=== PATIENT | male | born 1995 | race Caucasian/White ===

== ENCOUNTER → 2016-10-31 | Outpatient (CLI) | payer MEDICAID | END | disposition home or self-care (01) | LOC: M OUTALCOH 09:19 | PROVIDERS: ATTEND Psychiatry & Neurology Psychiatry | DX: Z13.9 Encounter for screening, unspecified (principal); F12.20 Cannabis dependence, uncomplicated ==

== ENCOUNTER 2016-11-08 14:45 | Outpatient (RCR) | payer MEDICAID | END 2016-11-27 | disposition home or self-care (01) | LOC: M OUTALCOH 14:45 | PROVIDERS: ATTEND Psychiatry & Neurology Psychiatry | DX: F12.20 Cannabis dependence, uncomplicated (principal); F17.200 Nicotine dependence, unspecified, uncomplicated ==

== ENCOUNTER 2016-11-13 10:49 | Emergency (ER) | payer MEDICAID, OTHER ==
--- NOTE | 2016-11-13 12:25 | EDDOCDS ---
Nurse's Notes [facility] Name: Juan Clark Age: 21 yrs Sex: Male : 1995 Arrival Date: 11/13/2016 Time: 10:49 Bed TR7 Private MD: [facility] - Ad[facility] Diagnosis: Dental caries;Insect bite (nonvenomous) of forearm-right Presentation: 11/13 11:00 Presenting complaint: Patient states: Generalized dental pain, for one week, was at [facility] dentist today, prescribed antibiotics, has not started yet. Adult Sepsis Screening: The patient does not have new or worsening altered mentation. Patient's respiratory rate is less than 22. Systolic blood pressure is greater than 100. Patient has a qSOFA score of 0- Negative Sepsis Screen. Suicide/Homicide risk assessment- the patient denies having any suicidal and/or homicidal ideations and does not present with any other emotional, behavioral or mental health complaints. Status: Patient is not a ramp service employee or dependent. Transition of care: patient was not received from another setting of care. 11:00 Acuity: THERESA Level 5 dwg 11:00 Method Of Arrival: Walkin/Carried/Asstd dw Triage Assessment: 11:03 General: Appears in no apparent distress, uncomfortable. Pain: Pain currently is 8 out dwg of 10 on a pain scale. HIV screening NA for this visit Offered previously. Historical: - Allergies: SULFA (SULFONAMIDES); - Home Meds: 1. trazodone 50 mg Oral tab (Last dose: 11/13/2016) 2. Tylenol 325 mg Oral tab 2 tabs as needed (Last dose: 11/13/2016 08:00) 3. Motrin 800 mg Oral tab 1 tab as needed (Last dose: 11/13/2016 08:00) - PMHx: Anxiety Disorder; Depression; - PSHx: Ear tubes; Tonsillectomy; - Social history: Smoking status: Patient uses tobacco products, current every day smoker. No barriers to communication noted, The patient speaks fluent Portuguese. - Family history: No immediate family members are acutely ill. - : The pt / caregiver states he / she is not on anticoagulants. Home medication list is obtained from the patient. - Exposure Risk Screening:: None identified. Screenin:43 Screening information is obtained from the patient. Fall risk: No risks identified. mb9 Assistance ADL's: requires no assistance with activities of daily living. Abuse/DV Screen: The patient / caregiver reports he/she is: not in a situation that causes fear, pain or injury. Nutritional screening: No deficits noted. Advance Directives: There is no active DNR order. home support is adequate. Assessment: 11:43 General: Appears in no apparent distress, Behavior is appropriate for age, cooperative. mb9 Pain: Location: mouth Pain currently is 6 out of 10 on a pain scale. Respiratory: Airway is patent Respiratory effort is even, unlabored. Injury Description: The patient reports to have been bitten by a spider on his/her right wrist. The bite was sustained 2 days ago. pt's fiance states, "He was bitten by a spider and needs that looked at". pt reports a spider bite to his right distal upper extremity. pt reports he was seen by his PHCP for the bite and was told to ice the area. pt has no additional concerns at this time. 12:06 General: pt now states he is concerned about the spider bite and would like to see the mb9 provider again. Mirza Dunne aware and in to see pt. . Vital Signs: 10:51 BP 138 / 81; Pulse 100; Resp 16; Temp 97.7(O); Pulse Ox 99% ; Weight 77.11 kg; Height 6 cmb ft. 0 in. (182.88 cm); Pain 7/10; 10:51 Body Mass Index 23.06 (77.11 kg, 182.88 cm) cmb Vitals: 10:51 Log In Time: November 13, 2016 at 10:49. cmb ED Course: 10:50 Patient visited by Rin López. cmb 10:50 Patient moved to Waiting cmb 10:51 [facility] is Private Physician. cmb 10:52 Patient moved to Pre RCE cmb 11:01 Triage Initiated dwg 11:22 Patient moved to Triage 2 mb9 11:25 Mirza Dunne PA-C is PHCP. ar2 11:25 Carlos Tran MD is Attending Physician. ar2 11:31 Patient visited by Mirza Dunne PA-C. ar2 11:36 [facility] is Referral Physician. ar2 11:43 The patient / caregiver is instructed regarding the plan of care and ED course. mb9 11:43 No IV's were initiated during this patient's visit. No procedures done that require mb9 assistance. 11:48 Patient moved to TR7 mb9 Order Results: There are currently no results for this order. Outcome: 11:37 Discharge ordered by Provider. ar2 12:07 Discharge Assessment: patient administered narcotics - no. The following High Risk mb9 Discharge criteria are identified: None. Discharged to home ambulatory. Condition: good Condition: stable Condition: improved. Discharge instructions given to patient, Instructed on discharge instructions, follow up and referral plans. medication usage, Demonstrated understanding of instructions, medications, Pt was receptive of discharge instructions/ teaching. Prescriptions given X 2. No special radiology studies were completed. Property :Personal belongings accompany Pt. 12:24 Patient left the ED. mb9 Signatures: Piyush Garcia, RN RN Mirza Alfred PA-C PA-C ar2 Rin López Michael,RN RN mb9 AROLDO
--- NOTE | 2016-11-13 12:25 | EDDOCDS ---
Physician Documentation [facility] Name: Juan Clark Age: 21 yrs Sex: Male : 1995 Arrival Date: 11/13/2016 Time: 10:49 Bed TR7 Private MD: [facility] - Adults Disposition: 11/13/16 11:37 Discharged to Home/Self Care. Impression: Dental caries, Insect bite (nonvenomous) of forearm - right. - Condition is Stable. - Discharge Instructions: Insect Bite, Dental Pain. - Prescriptions for Ultram 50 mg Oral Tablet - take 1 tablet by ORAL route every 6 hours As needed MDD: 4 tabs; 12 tablet. Benadryl 25 mg Oral Capsule - take 1 capsule by ORAL route every 6 hours As needed; 30 tablet. - Medication Reconciliation, Local Pharmacy Hours form. - Follow up: [facility] - Adults; When: Call to arrange an appointment; Reason: Recheck today's complaints. Follow up: Emergency Department; When: As needed; Reason: Fever > 102F, Trouble breathing, Worsening of conditions, severe swelling. - Problem is new. - Symptoms are unchanged. - Notes: continue ibuprofen and tyelnol as needed for pain. use ultram formore severe pain. start antibiotic as prescribed by your dentist. call for a follow up with their office. Historical: - Allergies: SULFA (SULFONAMIDES); - Home Meds: 1. trazodone 50 mg Oral tab (Last dose: 11/13/2016) 2. Tylenol 325 mg Oral tab 2 tabs as needed (Last dose: 11/13/2016 08:00) 3. Motrin 800 mg Oral tab 1 tab as needed (Last dose: 11/13/2016 08:00) - PMHx: Anxiety Disorder; Depression; - PSHx: Ear tubes; Tonsillectomy; - Social history: Smoking status: Patient uses tobacco products, current every day smoker. No barriers to communication noted, The patient speaks fluent Bruneian. - Family history: No immediate family members are acutely ill. - : The pt / caregiver states he / she is not on anticoagulants. Home medication list is obtained from the patient. - Exposure Risk Screening:: None identified. Vital Signs: 11/13 10:51 BP 138 / 81; Pulse 100; Resp 16; Temp 97.7(O); Pulse Ox 99% ; Weight 77.11 kg / 170 cmb lbs; Height 6 ft. 0 in. (182.88 cm); Pain 7/10; 10:51 Body Mass Index 23.06 (77.11 kg, 182.88 cm) cmb MDM: 11:35 Financial registration complete. lg Signatures: Piyush Garcia, RN RN dwg Caty Larry, Reg Reg lg Mirza Dunne PA-C PAMaribel ar2 Hari LagunasRN RN mb9 MTDD
--- NOTE | 2016-11-15 13:25 | EDDOCDS ---
Physician Documentation [facility] Name: Luis Clark Age: 21 yrs Sex: Male : 1995 Arrival Date: 11/13/2016 Time: 10:49 Bed TR7 Private MD: [facility] - Adults Disposition: 11/13/16 11:37 Discharged to Home/Self Care. Impression: Dental caries, Insect bite (nonvenomous) of forearm - right. - Condition is Stable. - Discharge Instructions: Insect Bite, Dental Pain. - Prescriptions for Ultram 50 mg Oral Tablet - take 1 tablet by ORAL route every 6 hours As needed MDD: 4 tabs; 12 tablet. Benadryl 25 mg Oral Capsule - take 1 capsule by ORAL route every 6 hours As needed; 30 tablet. - Medication Reconciliation, Local Pharmacy Hours form. - Follow up: [facility] - Adults; When: Call to arrange an appointment; Reason: Recheck today's complaints. Follow up: Emergency Department; When: As needed; Reason: Fever > 102F, Trouble breathing, Worsening of conditions, severe swelling. - Problem is new. - Symptoms are unchanged. - Notes: continue ibuprofen and tyelnol as needed for pain. use ultram formore severe pain. start antibiotic as prescribed by your dentist. call for a follow up with their office. Historical: - Allergies: SULFA (SULFONAMIDES); - Home Meds: 1. trazodone 50 mg Oral tab (Last dose: 11/13/2016) 2. Tylenol 325 mg Oral tab 2 tabs as needed (Last dose: 11/13/2016 08:00) 3. Motrin 800 mg Oral tab 1 tab as needed (Last dose: 11/13/2016 08:00) - PMHx: Anxiety Disorder; Depression; - PSHx: Ear tubes; Tonsillectomy; - Social history: Smoking status: Patient uses tobacco products, current every day smoker. No barriers to communication noted, The patient speaks fluent Mauritian. - Family history: No immediate family members are acutely ill. - : The pt / caregiver states he / she is not on anticoagulants. Home medication list is obtained from the patient. - Exposure Risk Screening:: None identified. Vital Signs: 11/13 10:51 BP 138 / 81; Pulse 100; Resp 16; Temp 97.7(O); Pulse Ox 99% ; Weight 77.11 kg / 170 cmb lbs; Height 6 ft. 0 in. (182.88 cm); Pain 7/10; 10:51 Body Mass Index 23.06 (77.11 kg, 182.88 cm) cmb MDM: 11:35 Financial registration complete. lg 12:48 T-Sheet-- Draft Copy was scanned into [employer] and attached to record. gb Signatures: Piyush Garcia RN RN dwg Marisol Her, Reg Reg gb Caty Larry, Reg Reg lg Mirza Dunne PAMaribel PAMaribel ar2 Hari LagunasRN RN mb9 The chart was reviewed and I authenticate all verbal orders and agree with the evaluation and treatment provided.Attachments: 12:48 T-Sheet-- Draft Copy gb Chart Complete MTDD
--- NOTE | 2016-11-15 13:25 | EDDOCDS ---
Nurse's Notes [facility] Name: Luis Clark Age: 21 yrs Sex: Male : 1995 Arrival Date: 11/13/2016 Time: 10:49 Bed TR7 Private MD: [facility] - Adults Diagnosis: Dental caries;Insect bite (nonvenomous) of forearm-right Presentation: 11/13 11:00 Presenting complaint: Patient states: Generalized dental pain, for one week, was at [facility] dentist today, prescribed antibiotics, has not started yet. Adult Sepsis Screening: The patient does not have new or worsening altered mentation. Patient's respiratory rate is less than 22. Systolic blood pressure is greater than 100. Patient has a qSOFA score of 0- Negative Sepsis Screen. Suicide/Homicide risk assessment- the patient denies having any suicidal and/or homicidal ideations and does not present with any other emotional, behavioral or mental health complaints. 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 Transition of care: patient was not received from another setting of care. 11:00 Acuity: THERESA Level 5 dwg 11:00 Method Of Arrival: Walkin/Carried/Asstd dw Triage Assessment: 11:03 General: Appears in no apparent distress, uncomfortable. Pain: Pain currently is 8 out dwg of 10 on a pain scale. HIV screening NA for this visit Offered previously. Historical: - Allergies: SULFA (SULFONAMIDES); - Home Meds: 1. trazodone 50 mg Oral tab (Last dose: 11/13/2016) 2. Tylenol 325 mg Oral tab 2 tabs as needed (Last dose: 11/13/2016 08:00) 3. Motrin 800 mg Oral tab 1 tab as needed (Last dose: 11/13/2016 08:00) - PMHx: Anxiety Disorder; Depression; - PSHx: Ear tubes; Tonsillectomy; - Social history: Smoking status: Patient uses tobacco products, current every day smoker. No barriers to communication noted, The patient speaks fluent Azerbaijani. - Family history: No immediate family members are acutely ill. - : The pt / caregiver states he / she is not on anticoagulants. Home medication list is obtained from the patient. - Exposure Risk Screening:: None identified. Screenin:43 Screening information is obtained from the patient. Fall risk: No risks identified. mb9 Assistance ADL's: requires no assistance with activities of daily living. Abuse/DV Screen: The patient / caregiver reports he/she is: not in a situation that causes fear, pain or injury. Nutritional screening: No deficits noted. Advance Directives: There is no active DNR order. home support is adequate. Assessment: 11:43 General: Appears in no apparent distress, Behavior is appropriate for age, cooperative. mb9 Pain: Location: mouth Pain currently is 6 out of 10 on a pain scale. Respiratory: Airway is patent Respiratory effort is even, unlabored. Injury Description: The patient reports to have been bitten by a spider on his/her right wrist. The bite was sustained 2 days ago. pt's fiance states, "He was bitten by a spider and needs that looked at". pt reports a spider bite to his right distal upper extremity. pt reports he was seen by his PHCP for the bite and was told to ice the area. pt has no additional concerns at this time. 12:06 General: pt now states he is concerned about the spider bite and would like to see the mb9 provider again. Miraz Dunne aware and in to see pt. . Vital Signs: 10:51 BP 138 / 81; Pulse 100; Resp 16; Temp 97.7(O); Pulse Ox 99% ; Weight 77.11 kg; Height 6 cmb ft. 0 in. (182.88 cm); Pain 7/10; 10:51 Body Mass Index 23.06 (77.11 kg, 182.88 cm) cmb Vitals: 10:51 Log In Time: November 13, 2016 at 10:49. cmb ED Course: 10:50 Patient visited by Rin López. cmb 10:50 Patient moved to Waiting cmb 10:51 [facility] is Private Physician. cmb 10:52 Patient moved to Pre RCE cmb 11:01 Triage Initiated dwg 11:22 Patient moved to Triage 2 mb9 11:25 Mirza Dunne PA-C is PHCP. ar2 11:25 Carlos Tran MD is Attending Physician. ar2 11:31 Patient visited by Mirza Dunne PA-C. ar2 11:36 [facility] is Referral Physician. ar2 11:43 The patient / caregiver is instructed regarding the plan of care and ED course. mb9 11:43 No IV's were initiated during this patient's visit. No procedures done that require mb9 assistance. 11:48 Patient moved to TR7 mb9 12:48 T-Sheet-- Draft Copy was scanned into [employer] and attached to record. 11/15 06:42 Patient name changed from Bryantopher\\S\\Aamir\\S\\Amber\\S\\ to Luis\\S\\A\\S\\Amber. EDMS Order Results: There are currently no results for this order. Outcome: 11/13 11:37 Discharge ordered by Provider. ar2 12:07 Discharge Assessment: patient administered narcotics - no. The following High Risk mb9 Discharge criteria are identified: None. Discharged to home ambulatory. Condition: good Condition: stable Condition: improved. Discharge instructions given to patient, Instructed on discharge instructions, follow up and referral plans. medication usage, Demonstrated understanding of instructions, medications, Pt was receptive of discharge instructions/ teaching. Prescriptions given X 2. No special radiology studies were completed. Property :Personal belongings accompany Pt. 12:24 Patient left the ED. mb9 Signatures: Dispatcher [facility] Piyush Garcia, TRIPP RN Marisol Mendiola, Mirza Friedman PA-C PA-C ar2 Boshart, Chelsea cmb Belles, Michael,RN RN mb9 Chart Complete MTDD
--- NOTE | 2016-11-15 13:25 | EDDOCDS ---
Physician Documentation [facility] Name: Luis Clark Age: 21 yrs Sex: Male : 1995 Arrival Date: 11/13/2016 Time: 10:49 Bed TR7 Private MD: [facility] - Adults Disposition: 11/13/16 11:37 Discharged to Home/Self Care. Impression: Dental caries, Insect bite (nonvenomous) of forearm - right. - Condition is Stable. - Discharge Instructions: Insect Bite, Dental Pain. - Prescriptions for Ultram 50 mg Oral Tablet - take 1 tablet by ORAL route every 6 hours As needed MDD: 4 tabs; 12 tablet. Benadryl 25 mg Oral Capsule - take 1 capsule by ORAL route every 6 hours As needed; 30 tablet. - Medication Reconciliation, Local Pharmacy Hours form. - Follow up: [facility] - Adults; When: Call to arrange an appointment; Reason: Recheck today's complaints. Follow up: Emergency Department; When: As needed; Reason: Fever > 102F, Trouble breathing, Worsening of conditions, severe swelling. - Problem is new. - Symptoms are unchanged. - Notes: continue ibuprofen and tyelnol as needed for pain. use ultram formore severe pain. start antibiotic as prescribed by your dentist. call for a follow up with their office. Historical: - Allergies: SULFA (SULFONAMIDES); - Home Meds: 1. trazodone 50 mg Oral tab (Last dose: 11/13/2016) 2. Tylenol 325 mg Oral tab 2 tabs as needed (Last dose: 11/13/2016 08:00) 3. Motrin 800 mg Oral tab 1 tab as needed (Last dose: 11/13/2016 08:00) - PMHx: Anxiety Disorder; Depression; - PSHx: Ear tubes; Tonsillectomy; - Social history: Smoking status: Patient uses tobacco products, current every day smoker. No barriers to communication noted, The patient speaks fluent Emirati. - Family history: No immediate family members are acutely ill. - : The pt / caregiver states he / she is not on anticoagulants. Home medication list is obtained from the patient. - Exposure Risk Screening:: None identified. Vital Signs: 11/13 10:51 BP 138 / 81; Pulse 100; Resp 16; Temp 97.7(O); Pulse Ox 99% ; Weight 77.11 kg / 170 cmb lbs; Height 6 ft. 0 in. (182.88 cm); Pain 7/10; 10:51 Body Mass Index 23.06 (77.11 kg, 182.88 cm) cmb MDM: 11:35 Financial registration complete. lg 12:48 T-Sheet-- Draft Copy was scanned into [employer] and attached to record. gb Signatures: Piyush Garcia RN RN dwg Marisol Her, Reg Reg gb Caty Larry, Reg Reg lg Mirza Dunne PAMaribel PAMaribel ar2 Hari LagunasRN RN mb9 The chart was reviewed and I authenticate all verbal orders and agree with the evaluation and treatment provided.Attachments: 12:48 T-Sheet-- Draft Copy gb Chart Complete MTDD
--- NOTE | 2016-11-16 12:09 | EDDOCDS ---
Nurse's Notes [facility] Name: Luis Clark Age: 21 yrs Sex: Male : 1995 Arrival Date: 11/13/2016 Time: 10:49 Bed TR7 Private MD: [facility] Diagnosis: Dental caries;Insect bite (nonvenomous) of forearm-right Presentation: 11/13 11:00 Presenting complaint: Patient states: Generalized dental pain, for one week, was at [facility] dentist today, prescribed antibiotics, has not started yet. Adult Sepsis Screening: The patient does not have new or worsening altered mentation. Patient's respiratory rate is less than 22. Systolic blood pressure is greater than 100. Patient has a qSOFA score of 0- Negative Sepsis Screen. Suicide/Homicide risk assessment- the patient denies having any suicidal and/or homicidal ideations and does not present with any other emotional, behavioral or mental health complaints. 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 Transition of care: patient was not received from another setting of care. 11:00 Acuity: THERESA Level 5 dwg 11:00 Method Of Arrival: Walkin/Carried/Asstd dw Triage Assessment: 11:03 General: Appears in no apparent distress, uncomfortable. Pain: Pain currently is 8 out dwg of 10 on a pain scale. HIV screening NA for this visit Offered previously. Historical: - Allergies: SULFA (SULFONAMIDES); - Home Meds: 1. trazodone 50 mg Oral tab (Last dose: 11/13/2016) 2. Tylenol 325 mg Oral tab 2 tabs as needed (Last dose: 11/13/2016 08:00) 3. Motrin 800 mg Oral tab 1 tab as needed (Last dose: 11/13/2016 08:00) - PMHx: Anxiety Disorder; Depression; - PSHx: Ear tubes; Tonsillectomy; - Social history: Smoking status: Patient uses tobacco products, current every day smoker. No barriers to communication noted, The patient speaks fluent Maldivian. - Family history: No immediate family members are acutely ill. - : The pt / caregiver states he / she is not on anticoagulants. Home medication list is obtained from the patient. - Exposure Risk Screening:: None identified. Screenin:43 Screening information is obtained from the patient. Fall risk: No risks identified. mb9 Assistance ADL's: requires no assistance with activities of daily living. Abuse/DV Screen: The patient / caregiver reports he/she is: not in a situation that causes fear, pain or injury. Nutritional screening: No deficits noted. Advance Directives: There is no active DNR order. home support is adequate. Assessment: 11:43 General: Appears in no apparent distress, Behavior is appropriate for age, cooperative. mb9 Pain: Location: mouth Pain currently is 6 out of 10 on a pain scale. Respiratory: Airway is patent Respiratory effort is even, unlabored. Injury Description: The patient reports to have been bitten by a spider on his/her right wrist. The bite was sustained 2 days ago. pt's fiance states, "He was bitten by a spider and needs that looked at". pt reports a spider bite to his right distal upper extremity. pt reports he was seen by his PHCP for the bite and was told to ice the area. pt has no additional concerns at this time. 12:06 General: pt now states he is concerned about the spider bite and would like to see the mb9 provider again. Mirza Dunne aware and in to see pt. . Vital Signs: 10:51 BP 138 / 81; Pulse 100; Resp 16; Temp 97.7(O); Pulse Ox 99% ; Weight 77.11 kg; Height 6 cmb ft. 0 in. (182.88 cm); Pain 7/10; 10:51 Body Mass Index 23.06 (77.11 kg, 182.88 cm) cmb Vitals: 10:51 Log In Time: November 13, 2016 at 10:49. cmb ED Course: 10:50 Patient visited by Rin López. cmb 10:50 Patient moved to Waiting cmb 10:51 [facility] is Private Physician. cmb 10:52 Patient moved to Pre RCE cmb 11:01 Triage Initiated dwg 11:22 Patient moved to Triage 2 mb9 11:25 Mirza Dunne PA-C is PHCP. ar2 11:25 Carlos Tran MD is Attending Physician. ar2 11:31 Patient visited by Mirza Dunne PA-C. ar2 11:36 [facility] is Referral Physician. ar2 11:43 The patient / caregiver is instructed regarding the plan of care and ED course. mb9 11:43 No IV's were initiated during this patient's visit. No procedures done that require mb9 assistance. 11:48 Patient moved to TR7 mb9 12:48 T-Sheet-- Draft Copy was scanned into [employer] and attached to record. 11/15 06:42 Patient name changed from Bryantopher\\S\\Aamir\\S\\Amber\\S\\ to Luis\\S\\A\\S\\Amber. EDMS Order Results: There are currently no results for this order. Outcome: 11/13 11:37 Discharge ordered by Provider. ar2 12:07 Discharge Assessment: patient administered narcotics - no. The following High Risk mb9 Discharge criteria are identified: None. Discharged to home ambulatory. Condition: good Condition: stable Condition: improved. Discharge instructions given to patient, Instructed on discharge instructions, follow up and referral plans. medication usage, Demonstrated understanding of instructions, medications, Pt was receptive of discharge instructions/ teaching. Prescriptions given X 2. No special radiology studies were completed. Property :Personal belongings accompany Pt. 12:24 Patient left the ED. mb9 Signatures: [facility]patcher [facility] ED[facility] Piyush Garcia, TRIPP RN Marisol Mendiola, Mirza Friedman PA-C PA-C ar2 Boshart, Chelsea cmb Belles, Michael,RN RN mb9 Chart Complete MTDD
--- NOTE | 2016-11-16 12:09 | EDDOCDS ---
Physician Documentation [facility] Name: Luis Clark Age: 21 yrs Sex: Male : 1995 Arrival Date: 11/13/2016 Time: 10:49 Bed TR7 Private MD: [facility] - Adults Disposition: 11/13/16 11:37 Discharged to Home/Self Care. Impression: Dental caries, Insect bite (nonvenomous) of forearm - right. - Condition is Stable. - Discharge Instructions: Insect Bite, Dental Pain. - Prescriptions for Ultram 50 mg Oral Tablet - take 1 tablet by ORAL route every 6 hours As needed MDD: 4 tabs; 12 tablet. Benadryl 25 mg Oral Capsule - take 1 capsule by ORAL route every 6 hours As needed; 30 tablet. - Medication Reconciliation, Local Pharmacy Hours form. - Follow up: [facility] - Adults; When: Call to arrange an appointment; Reason: Recheck today's complaints. Follow up: Emergency Department; When: As needed; Reason: Fever > 102F, Trouble breathing, Worsening of conditions, severe swelling. - Problem is new. - Symptoms are unchanged. - Notes: continue ibuprofen and tyelnol as needed for pain. use ultram formore severe pain. start antibiotic as prescribed by your dentist. call for a follow up with their office. Historical: - Allergies: SULFA (SULFONAMIDES); - Home Meds: 1. trazodone 50 mg Oral tab (Last dose: 11/13/2016) 2. Tylenol 325 mg Oral tab 2 tabs as needed (Last dose: 11/13/2016 08:00) 3. Motrin 800 mg Oral tab 1 tab as needed (Last dose: 11/13/2016 08:00) - PMHx: Anxiety Disorder; Depression; - PSHx: Ear tubes; Tonsillectomy; - Social history: Smoking status: Patient uses tobacco products, current every day smoker. No barriers to communication noted, The patient speaks fluent Senegalese. - Family history: No immediate family members are acutely ill. - : The pt / caregiver states he / she is not on anticoagulants. Home medication list is obtained from the patient. - Exposure Risk Screening:: None identified. Vital Signs: 11/13 10:51 BP 138 / 81; Pulse 100; Resp 16; Temp 97.7(O); Pulse Ox 99% ; Weight 77.11 kg / 170 cmb lbs; Height 6 ft. 0 in. (182.88 cm); Pain 7/10; 10:51 Body Mass Index 23.06 (77.11 kg, 182.88 cm) cmb MDM: 11:35 Financial registration complete. lg 12:48 T-Sheet-- Draft Copy was scanned into [employer] and attached to record. gb Signatures: Piyush Garcia RN RN dwg Marisol Her, Reg Reg gb Caty Larry, Reg Reg lg Mirza Dunne PAMaribel PAMaribel ar2 Hari LagunasRN RN mb9 The chart was reviewed and I authenticate all verbal orders and agree with the evaluation and treatment provided.Attachments: 12:48 T-Sheet-- Draft Copy gb Chart Complete MTDD
--- NOTE | 2016-11-16 12:09 | EDDOCDS ---
Physician Documentation [facility] Name: Luis Clark Age: 21 yrs Sex: Male : 1995 Arrival Date: 11/13/2016 Time: 10:49 Bed TR7 Private MD: [facility] - Adults Disposition: 11/13/16 11:37 Discharged to Home/Self Care. Impression: Dental caries, Insect bite (nonvenomous) of forearm - right. - Condition is Stable. - Discharge Instructions: Insect Bite, Dental Pain. - Prescriptions for Ultram 50 mg Oral Tablet - take 1 tablet by ORAL route every 6 hours As needed MDD: 4 tabs; 12 tablet. Benadryl 25 mg Oral Capsule - take 1 capsule by ORAL route every 6 hours As needed; 30 tablet. - Medication Reconciliation, Local Pharmacy Hours form. - Follow up: [facility] - Adults; When: Call to arrange an appointment; Reason: Recheck today's complaints. Follow up: Emergency Department; When: As needed; Reason: Fever > 102F, Trouble breathing, Worsening of conditions, severe swelling. - Problem is new. - Symptoms are unchanged. - Notes: continue ibuprofen and tyelnol as needed for pain. use ultram formore severe pain. start antibiotic as prescribed by your dentist. call for a follow up with their office. Historical: - Allergies: SULFA (SULFONAMIDES); - Home Meds: 1. trazodone 50 mg Oral tab (Last dose: 11/13/2016) 2. Tylenol 325 mg Oral tab 2 tabs as needed (Last dose: 11/13/2016 08:00) 3. Motrin 800 mg Oral tab 1 tab as needed (Last dose: 11/13/2016 08:00) - PMHx: Anxiety Disorder; Depression; - PSHx: Ear tubes; Tonsillectomy; - Social history: Smoking status: Patient uses tobacco products, current every day smoker. No barriers to communication noted, The patient speaks fluent Beninese. - Family history: No immediate family members are acutely ill. - : The pt / caregiver states he / she is not on anticoagulants. Home medication list is obtained from the patient. - Exposure Risk Screening:: None identified. Vital Signs: 11/13 10:51 BP 138 / 81; Pulse 100; Resp 16; Temp 97.7(O); Pulse Ox 99% ; Weight 77.11 kg / 170 cmb lbs; Height 6 ft. 0 in. (182.88 cm); Pain 7/10; 10:51 Body Mass Index 23.06 (77.11 kg, 182.88 cm) cmb MDM: 11:35 Financial registration complete. lg 12:48 T-Sheet-- Draft Copy was scanned into [employer] and attached to record. gb Signatures: Piyush Garcia RN RN dwg Marisol Her, Reg Reg gb Caty Larry, Reg Reg lg Mirza Dunne PAMaribel PAMaribel ar2 Hari LagunasRN RN mb9 The chart was reviewed and I authenticate all verbal orders and agree with the evaluation and treatment provided.Attachments: 12:48 T-Sheet-- Draft Copy gb Chart Complete MTDD
== END 2016-11-13 12:24 | disposition home or self-care (01) ==
LOC: M ED 10:49
DX: K02.9 Dental caries, unspecified (principal); F41.9 Anxiety disorder, unspecified; F32.9 Major depressive disorder, single episode, unspecified; Z96.22 Myringotomy tube(s) status; Z72.0 Tobacco use; Z79.899 Other long term (current) drug therapy; Z88.2 Allergy status to sulfonamides

== ENCOUNTER 2016-11-23 14:01 | Emergency (ER) | payer OTHER ==
[2016-11-23] MEDS ORDERED: METAL LOCK LOOP XX ONE (15:12)
--- NOTE | 2016-11-23 15:23 | EDDOCDS ---
Nurse's Notes [facility] Name: Juan Clark Age: 21 yrs Sex: Male : 1995 Arrival Date: 11/23/2016 Time: 14:01 Bed I8 / 16 Private MD: David Reynolds Diagnosis: Disorders of tooth development and eruption Presentation: 11/23 14:06 Presenting complaint: Patient states: back wisdom tooth pain right side. pain for 3 srm weeks cant see DDS until nov. Adult Sepsis Screening: The patient does not have new or worsening altered mentation. Patient's respiratory rate is less than 22. Systolic blood pressure is greater than 100. Patient has a qSOFA score of 0- Negative Sepsis Screen. Suicide/Homicide risk assessment- the patient denies having any suicidal and/or homicidal ideations and does not present with any other emotional, behavioral or mental health complaints. Status: Patient is not a human services supervisor or dependent. Transition of care: patient was not received from another setting of care. 14:06 Acuity: THERESA Level 5 [facility] 14:06 Method Of Arrival: Walkin/Carried/Asstd [facility] Triage Assessment: 14:08 General: Appears in no apparent distress, Behavior is appropriate for age, cooperative. srm Pain: Pain currently is 8 out of 10 on a pain scale. HIV screening NA for this visit Offered previously. EENT: Reports pain right upper back wisdom tooth. Historical: - Allergies: SULFA (SULFONAMIDES); - Home Meds: 1. Motrin 800 mg Oral tab 1 tab as needed (Last dose: 11/23/2016 09:00) 2. trazodone 50 mg Oral tab nightly 3. paroxetine HCl 10 mg Oral tab once daily - PMHx: Anxiety Disorder; Depression; - PSHx: Ear Tubes; Tonsillectomy; - Social history: Smoking status: Patient uses tobacco products, current every day smoker. No barriers to communication noted, The patient speaks fluent Ukrainian, Speaks appropriately for age. - Family history: Not pertinent. - : The pt / caregiver states he / she is not on anticoagulants. Home medication list is obtained from the patient. - Exposure Risk Screening:: None identified. Screenin:20 Screening information is obtained from the patient. Fall risk: No risks identified. jmb Assistance ADL's: requires no assistance with activities of daily living. Abuse/DV Screen: The patient / caregiver reports he/she is: not in a situation that causes fear, pain or injury. Nutritional screening: No deficits noted. Advance Directives: Currently, there is no health care proxy. There is no active DNR order. There is no living will. There is no Power of Personnel Supervisor. home support is adequate. Assessment: 15:20 General: Patient instructed on discharge instructions. Patient asked if there were any jmb questions regarding discharge, patient stated no. Patient signed discharge instructions. Patient discharged in stable condition. . Vital Signs: 14:03 BP 131 / 76; Pulse 75; Resp 18 S; Temp 97.5(O); Pulse Ox 99% on R/A; Weight 79.38 kg dd6 (R); Height 6 ft. 0 in. (182.88 cm) (R); 15:20 BP 128 / 70; Pulse 78; Resp 18; Temp 97.2(O); Pulse Ox 98% on R/A; Pain 2/10; jmb 14:03 Body Mass Index 23.73 (79.38 kg, 182.88 cm) dd6 Vitals: 14:03 Log In Time: November 23, 2016 at 14:01. dd6 ED Course: 14:03 Patient visited by Jenaro Aguilar PCA. dd6 14:03 David Reynolds is Private Physician. dd6 14:03 Patient moved to Waiting dd6 14:05 Patient moved to Pre RCE dd6 14:06 Triage Initiated srm 14:40 Patient moved to I9 / 22 cc10 14:41 Patient moved to I8 / 16 lr2 14:42 Patient visited by Jeniffer Warner PCA. jb5 14:47 [facility] ke 14:47 Patient visited by Humble Morrow FNP. ke 14:47 Patient visited by Humble Morrow FNP. ke 15:00 Your, Dentist is Referral Physician. ke 15:20 The patient / caregiver is instructed regarding the plan of care and ED course. jmb 15:20 No IV's were initiated during this patient's visit. No procedures done that require jmb assistance. Order Results: There are currently no results for this order. Outcome: 15:00 Discharge ordered by Provider. ke 15:20 Discharge Assessment: Patient awake, alert and oriented x 3. No cognitive and/or jmb functional deficits noted. Patient verbalized understanding of disposition instructions. Patient awake and alert. obeys commands, Oriented to person, place and time. Patient verbalized understanding of disposition instructions. Patient has no functional deficits. patient administered narcotics - no. The following High Risk Discharge criteria are identified: None. Discharged to home ambulatory. Condition: stable Condition: improved. Discharge instructions given to patient, Instructed on discharge instructions, follow up and referral plans. medication usage, Demonstrated understanding of instructions, medications, Pt was receptive of discharge instructions/ teaching. Prescriptions given X 1. No special radiology studies were completed. Property sent home with patient. 15:22 Patient left the ED. harjinder Signatures: Yareli Eduardo, RN RN Humble Page, ROAD ROLLER OPERATOR ROAD ROLLER OPERATOR Jeniffer Chance, INSPECTOR FIBROUS WALLBOARD INSPECTOR FIBROUS WALLBOARD jb5 Jenaro Aguilar, INSPECTOR FIBROUS WALLBOARD INSPECTOR FIBROUS WALLBOARD dd6 David Ga RN RN jmb Coniski, Colin, PA-C PA-C cc10 [facility]
--- NOTE | 2016-11-23 15:23 | EDDOCDS ---
Physician Documentation [facility] Name: Juan Clark Age: 21 yrs Sex: Male : 1995 Arrival Date: 11/23/2016 Time: 14:01 Bed I8 / 16 Private MD: David Reynolds Disposition: 11/23/16 15:00 Discharged to Home/Self Care. Impression: Disorders of tooth development and eruption. - Condition is Stable. - Discharge Instructions: Dental Pain. - Prescriptions for Tramadol 50 mg Oral Tablet - take 1 tablet by ORAL route 4 times per day As needed MDD: 4 tabs; 20 tablet. - Medication Reconciliation, Local Pharmacy Hours form. - Follow up: Your, Dentist; When: As soon as possible; Reason: Recheck today's complaints, Continuance of care. - Problem is an ongoing problem. - Symptoms are unchanged. Historical: - Allergies: SULFA (SULFONAMIDES); - Home Meds: 1. Motrin 800 mg Oral tab 1 tab as needed (Last dose: 11/23/2016 09:00) 2. trazodone 50 mg Oral tab nightly 3. paroxetine HCl 10 mg Oral tab once daily - PMHx: Anxiety Disorder; Depression; - PSHx: Ear Tubes; Tonsillectomy; - Social history: Smoking status: Patient uses tobacco products, current every day smoker. No barriers to communication noted, The patient speaks fluent Burundian, Speaks appropriately for age. - Family history: Not pertinent. - : The pt / caregiver states he / she is not on anticoagulants. Home medication list is obtained from the patient. - Exposure Risk Screening:: None identified. Vital Signs: 11/23 14:03 BP 131 / 76; Pulse 75; Resp 18 S; Temp 97.5(O); Pulse Ox 99% on R/A; Weight 79.38 kg / dd6 175 lbs (R); Height 6 ft. 0 in. (182.88 cm) (R); 15:20 BP 128 / 70; Pulse 78; Resp 18; Temp 97.2(O); Pulse Ox 98% on R/A; Pain 2/10; jmb 14:03 Body Mass Index 23.73 (79.38 kg, 182.88 cm) dd6 Signatures: Yareli Eduardo, TRIPP RN Humble Page, VISITOR SERVICES ASSOCIATE VISITOR SERVICES ASSOCIATE David Goins,RN RN jmb MTDD
--- NOTE | 2016-11-25 16:23 | EDDOCDS ---
Physician Documentation [facility] Name: Juan Clark Age: 21 yrs Sex: Male : 1995 Arrival Date: 11/23/2016 Time: 14:01 Bed I8 / 16 Private MD: David Reynolds Disposition: 11/23/16 15:00 Discharged to Home/Self Care. Impression: Disorders of tooth development and eruption. - Condition is Stable. - Discharge Instructions: Dental Pain. - Prescriptions for Tramadol 50 mg Oral Tablet - take 1 tablet by ORAL route 4 times per day As needed MDD: 4 tabs; 20 tablet. - Medication Reconciliation, Local Pharmacy Hours form. - Follow up: Your, Dentist; When: As soon as possible; Reason: Recheck today's complaints, Continuance of care. - Problem is an ongoing problem. - Symptoms are unchanged. Historical: - Allergies: SULFA (SULFONAMIDES); - Home Meds: 1. Motrin 800 mg Oral tab 1 tab as needed (Last dose: 11/23/2016 09:00) 2. trazodone 50 mg Oral tab nightly 3. paroxetine HCl 10 mg Oral tab once daily - PMHx: Anxiety Disorder; Depression; - PSHx: Ear Tubes; Tonsillectomy; - Social history: Smoking status: Patient uses tobacco products, current every day smoker. No barriers to communication noted, The patient speaks fluent Japanese, Speaks appropriately for age. - Family history: Not pertinent. - : The pt / caregiver states he / she is not on anticoagulants. Home medication list is obtained from the patient. - Exposure Risk Screening:: None identified. Vital Signs: 11/23 14:03 BP 131 / 76; Pulse 75; Resp 18 S; Temp 97.5(O); Pulse Ox 99% on R/A; Weight 79.38 kg / dd6 175 lbs (R); Height 6 ft. 0 in. (182.88 cm) (R); 15:20 BP 128 / 70; Pulse 78; Resp 18; Temp 97.2(O); Pulse Ox 98% on R/A; Pain 2/10; jmb 14:03 Body Mass Index 23.73 (79.38 kg, 182.88 cm) dd6 MDM: 15:36 [facility] Payment Agreement was scanned into [employer] and attached to record. 11/24 08:39 T-Sheet-- Draft Copy was scanned into [employer] and attached to record. [facility] Signatures: Yareli Eduardo, Caty Buck RN, Og Reg lg Humble Morrow, TILE DITCHER TILE DITCHER David Goins RN RN jmb Hoffert, Sharda streeter The chart was reviewed and I authenticate all verbal orders and agree with the evaluation and treatment provided.Attachments: 11/23 15:36 [facility] Payment Agreement 11/24 08:39 T-Sheet-- Draft Copy [facility] Chart Complete MTDD
--- NOTE | 2016-11-25 16:23 | EDDOCDS ---
Nurse's Notes [facility] Name: Juan Clark Age: 21 yrs Sex: Male : 1995 Arrival Date: 11/23/2016 Time: 14:01 Bed I8 / 16 Private MD: David Reynolds Diagnosis: Disorders of tooth development and eruption Presentation: 11/23 14:06 Presenting complaint: Patient states: back wisdom tooth pain right side. pain for 3 srm weeks cant see DDS until nov. Adult Sepsis Screening: The patient does not have new or worsening altered mentation. Patient's respiratory rate is less than 22. Systolic blood pressure is greater than 100. Patient has a qSOFA score of 0- Negative Sepsis Screen. Suicide/Homicide risk assessment- the patient denies having any suicidal and/or homicidal ideations and does not present with any other emotional, behavioral or mental health complaints. Status: Patient is not a seafood service team member or dependent. Transition of care: patient was not received from another setting of care. 14:06 Acuity: THERESA Level 5 [facility] 14:06 Method Of Arrival: Walkin/Carried/Asstd [facility] Triage Assessment: 14:08 General: Appears in no apparent distress, Behavior is appropriate for age, cooperative. srm Pain: Pain currently is 8 out of 10 on a pain scale. HIV screening NA for this visit Offered previously. EENT: Reports pain right upper back wisdom tooth. Historical: - Allergies: SULFA (SULFONAMIDES); - Home Meds: 1. Motrin 800 mg Oral tab 1 tab as needed (Last dose: 11/23/2016 09:00) 2. trazodone 50 mg Oral tab nightly 3. paroxetine HCl 10 mg Oral tab once daily - PMHx: Anxiety Disorder; Depression; - PSHx: Ear Tubes; Tonsillectomy; - Social history: Smoking status: Patient uses tobacco products, current every day smoker. No barriers to communication noted, The patient speaks fluent Indonesian, Speaks appropriately for age. - Family history: Not pertinent. - : The pt / caregiver states he / she is not on anticoagulants. Home medication list is obtained from the patient. - Exposure Risk Screening:: None identified. Screenin:20 Screening information is obtained from the patient. Fall risk: No risks identified. jmb Assistance ADL's: requires no assistance with activities of daily living. Abuse/DV Screen: The patient / caregiver reports he/she is: not in a situation that causes fear, pain or injury. Nutritional screening: No deficits noted. Advance Directives: Currently, there is no health care proxy. There is no active DNR order. There is no living will. There is no Power of Tow Motor Driver. home support is adequate. Assessment: 15:20 General: Patient instructed on discharge instructions. Patient asked if there were any jmb questions regarding discharge, patient stated no. Patient signed discharge instructions. Patient discharged in stable condition. . Vital Signs: 14:03 BP 131 / 76; Pulse 75; Resp 18 S; Temp 97.5(O); Pulse Ox 99% on R/A; Weight 79.38 kg dd6 (R); Height 6 ft. 0 in. (182.88 cm) (R); 15:20 BP 128 / 70; Pulse 78; Resp 18; Temp 97.2(O); Pulse Ox 98% on R/A; Pain 2/10; jmb 14:03 Body Mass Index 23.73 (79.38 kg, 182.88 cm) dd6 Vitals: 14:03 Log In Time: November 23, 2016 at 14:01. dd6 ED Course: 14:03 Patient visited by Jenaro Aguilar PCA. dd6 14:03 David Reynolds is Private Physician. dd6 14:03 Patient moved to Waiting dd6 14:05 Patient moved to Pre RCE dd6 14:06 Triage Initiated srm 14:40 Patient moved to I9 / 22 cc10 14:41 Patient moved to I8 / 16 lr2 14:42 Patient visited by Jeniffer Warner PCA. jb5 14:47 [facility] Morrow F[facility]. ke 14:47 Patient visited by Humble Morrow FNP. ke 14:47 Patient visited by Humble Morrow FNP. ke 15:00 Your, Dentist is Referral Physician. ke 15:20 The patient / caregiver is instructed regarding the plan of care and ED course. jmb 15:20 No IV's were initiated during this patient's visit. No procedures done that require jmb assistance. 15:36 [facility] Payment Agreement was scanned into [employer] and attached to record. [facility] 11/24 08:39 T-Sheet-- Draft Copy was scanned into [employer] and attached to record. [facility] Order Results: There are currently no results for this order. Outcome: 11/23 15:00 Discharge ordered by Provider. cuco 15:20 Discharge Assessment: Patient awake, alert and oriented x 3. No cognitive and/or jmb functional deficits noted. Patient verbalized understanding of disposition instructions. Patient awake and alert. obeys commands, Oriented to person, place and time. Patient verbalized understanding of disposition instructions. Patient has no functional deficits. patient administered narcotics - no. The following High Risk Discharge criteria are identified: None. Discharged to home ambulatory. Condition: stable Condition: improved. Discharge instructions given to patient, Instructed on discharge instructions, follow up and referral plans. medication usage, Demonstrated understanding of instructions, medications, Pt was receptive of discharge instructions/ teaching. Prescriptions given X 1. No special radiology studies were completed. Property sent home with patient. 15:22 Patient left the ED. harjinder Signatures: Yareli Eduardo, RN RN Caty Trujillo, Reg Reg lg Humble Morrow, PYROTECHNIC MIXER PYROTECHNIC MIXER Jeniffer Chance, BOND WRITER BOND WRITER jb5 Jenaro Aguilar, BOND WRITER BOND WRITER dd6 David Ga RN RN Cedric West PA-C PAMaribel cc10 Sharda Townsend Laura lr2 Chart Complete AROLDO
--- NOTE | 2016-11-25 16:23 | EDDOCDS ---
Physician Documentation [facility] Name: Juan Clark Age: 21 yrs Sex: Male : 1995 Arrival Date: 11/23/2016 Time: 14:01 Bed I8 / 16 Private MD: David Reynolds Disposition: 11/23/16 15:00 Discharged to Home/Self Care. Impression: Disorders of tooth development and eruption. - Condition is Stable. - Discharge Instructions: Dental Pain. - Prescriptions for Tramadol 50 mg Oral Tablet - take 1 tablet by ORAL route 4 times per day As needed MDD: 4 tabs; 20 tablet. - Medication Reconciliation, Local Pharmacy Hours form. - Follow up: Your, Dentist; When: As soon as possible; Reason: Recheck today's complaints, Continuance of care. - Problem is an ongoing problem. - Symptoms are unchanged. Historical: - Allergies: SULFA (SULFONAMIDES); - Home Meds: 1. Motrin 800 mg Oral tab 1 tab as needed (Last dose: 11/23/2016 09:00) 2. trazodone 50 mg Oral tab nightly 3. paroxetine HCl 10 mg Oral tab once daily - PMHx: Anxiety Disorder; Depression; - PSHx: Ear Tubes; Tonsillectomy; - Social history: Smoking status: Patient uses tobacco products, current every day smoker. No barriers to communication noted, The patient speaks fluent Zimbabwean, Speaks appropriately for age. - Family history: Not pertinent. - : The pt / caregiver states he / she is not on anticoagulants. Home medication list is obtained from the patient. - Exposure Risk Screening:: None identified. Vital Signs: 11/23 14:03 BP 131 / 76; Pulse 75; Resp 18 S; Temp 97.5(O); Pulse Ox 99% on R/A; Weight 79.38 kg / dd6 175 lbs (R); Height 6 ft. 0 in. (182.88 cm) (R); 15:20 BP 128 / 70; Pulse 78; Resp 18; Temp 97.2(O); Pulse Ox 98% on R/A; Pain 2/10; jmb 14:03 Body Mass Index 23.73 (79.38 kg, 182.88 cm) dd6 MDM: 15:36 [facility] Payment Agreement was scanned into [employer] and attached to record. 11/24 08:39 T-Sheet-- Draft Copy was scanned into [employer] and attached to record. [facility] Signatures: Yareli Eduardo, Caty Buck RN, Og Reg lg Humble Morrow, ANIMAL HUMANE AGENT SUPERVISOR ANIMAL HUMANE AGENT SUPERVISOR David Goins RN RN jmb Hoffert, Sharda streeter The chart was reviewed and I authenticate all verbal orders and agree with the evaluation and treatment provided.Attachments: 11/23 15:36 [facility] Payment Agreement 11/24 08:39 T-Sheet-- Draft Copy [facility] Chart Complete MTDD
== END 2016-11-23 15:22 | disposition home or self-care (01) ==
LOC: M ED 14:01
DX: K08.89 Other specified disorders of teeth and supporting structures (principal); F41.9 Anxiety disorder, unspecified; F32.9 Major depressive disorder, single episode, unspecified; Z72.0 Tobacco use; Z79.899 Other long term (current) drug therapy; Z88.2 Allergy status to sulfonamides

== ENCOUNTER 2017-03-20 13:44 | Emergency (ER) | payer MEDICAID, OTHER ==
[~2017-03-20] VITALS: Ht 182.9 cm; Wt 81.6 kg
[2017-03-20 13:44] VITALS: BP 143/71
[2017-03-20] MEDS ORDERED: PRAZ1CAP PO (13:57)
[2017-03-20] MEDS ORDERED: AUGM875T27 PO (13:57)
[2017-03-20] MEDS ORDERED: LABE10TAB PO (13:57)
[2017-03-20] MEDS ORDERED: CAMPRAL PO (13:57)
[2017-03-20] MEDS ORDERED: BUPR15TA PO (13:57)
[2017-03-20] MEDS ORDERED: PERI0.126 MT (13:57)
[2017-03-20] MEDS ORDERED: [UNRECOGNIZED DRUG - CODE] MT (14:40)
== END 2017-03-20 14:56 | disposition home or self-care (01) ==
LOC: M ED 14:52
DX: K02.9 Dental caries, unspecified (principal); I10 Essential (primary) hypertension; F99 Mental disorder, not otherwise specified; F17.210 Nicotine dependence, cigarettes, uncomplicated; Z79.899 Other long term (current) drug therapy; Z79.2 Long term (current) use of antibiotics; Z88.2 Allergy status to sulfonamides; Z88.8 Allergy status to other drugs, medicaments and biological substances

== ENCOUNTER → 2017-03-20 | Outpatient (CLI) | payer MEDICAID ==
[~2017-03-20] MED LIST: AUGM875T27 PO; BUPR15TA PO; CAMPRAL PO; LABE10TAB PO; PERI0.126 MT; PRAZ1CAP PO; [UNRECOGNIZED DRUG - CODE] MT
== END ==
LOC: M OUTALCOH 07:46
PROVIDERS: ATTEND Psychiatry & Neurology Psychiatry
DX: Z13.9 Encounter for screening, unspecified (principal); F10.20 Alcohol dependence, uncomplicated; F15.20 Other stimulant dependence, uncomplicated

== ENCOUNTER → 2017-04-26 | Outpatient (RCR) | payer MEDICAID ==
[~2017-04-26] MED LIST changes: -AUGM875T27 PO; +AUGM875T28 PO
== END ==
LOC: M OUTALCOH 04-04 11:33
PROVIDERS: ATTEND Psychiatry & Neurology Psychiatry
DX: F12.20 Cannabis dependence, uncomplicated (principal); F17.200 Nicotine dependence, unspecified, uncomplicated; F10.20 Alcohol dependence, uncomplicated; F15.20 Other stimulant dependence, uncomplicated

== ENCOUNTER 2017-05-24 08:45 | Outpatient (RCR) | payer MEDICAID | END 2017-05-27 | LOC: M OUTALCOH 08:45 | PROVIDERS: ATTEND Psychiatry & Neurology Psychiatry | DX: F12.20 Cannabis dependence, uncomplicated (principal); F17.200 Nicotine dependence, unspecified, uncomplicated; F10.20 Alcohol dependence, uncomplicated; F15.20 Other stimulant dependence, uncomplicated ==

== ENCOUNTER 2017-06-26 10:00 | Outpatient (RCR) | payer MEDICAID | END 2017-06-27 | LOC: M OUTALCOH 10:00 | PROVIDERS: ATTEND Psychiatry & Neurology Psychiatry | DX: F12.20 Cannabis dependence, uncomplicated (principal); F17.200 Nicotine dependence, unspecified, uncomplicated; F10.20 Alcohol dependence, uncomplicated; F15.20 Other stimulant dependence, uncomplicated ==

== ENCOUNTER 2017-07-22 14:00 | Outpatient (RCR) | payer MEDICAID | END 2017-07-27 | LOC: M OUTALCOH 14:00 | PROVIDERS: ATTEND Psychiatry & Neurology Psychiatry | DX: F12.20 Cannabis dependence, uncomplicated (principal); F17.200 Nicotine dependence, unspecified, uncomplicated; F10.20 Alcohol dependence, uncomplicated; F15.20 Other stimulant dependence, uncomplicated ==

== ENCOUNTER → 2020-03-23 | Outpatient (REF) | payer OTHER ==
[2020-03-23 13:49] LABS: ALBUMIN 3.9 GM/DL (3.2-5.2); BLOOD UREA NITROGEN 11 MG/DL (7-18); CALCIUM LEVEL 8.9 MG/DL (8.5-10.1); CARBON DIOXIDE LEVEL 30 MEQ/L (21-32); CHLORIDE LEVEL 106 MEQ/L (98-107); CREATININE FOR GFR 0.82 MG/DL (0.70-1.30); GLOMERULAR FILTRATION RATE > 60.0 (>60); GLUCOSE, FASTING 100 MG/DL (70-100); PHOSPHORUS LEVEL 3.4 MG/DL (2.5-4.9); POTASSIUM SERUM 3.9 MEQ/L (3.5-5.1); SODIUM LEVEL 139 MEQ/L (136-145)
[2020-03-23 14:07] LABS: HEPATITIS B SURFACE ANTIGEN NEGATIVE (NEGATIVE)
[2020-03-23 14:35] LABS: HIV 1&2 SCREEN CENTAUR NEGATIVE (NEGATIVE)
[2020-03-23 14:51] LABS: CHLAMYDIA DNA AMPLIFICATION NEGATIVE (NEGATIVE); GC DNA AMPLIFICATION NEGATIVE (NEGATIVE)
[2020-03-24 20:07] LABS: HEPATITIS B CORE ANTIBODY IGG Negative (Negative); HSV IgM TYPES 1&2 <0.91 Ratio (0.00-0.90)
[2020-03-28 14:32] LABS: HEPATITIS B SURFACE ANTIBODY NEGATIVE (POSITIVE)
== END ==
LOC: M SFHCLERA 09:51
PROVIDERS: ATTEND Family Medicine
DX: Z72.51 High risk heterosexual behavior (principal)

== ENCOUNTER 2020-08-30 22:32 | Inpatient (IN) | payer MEDICAID, OTHER ==
[~2020-08-30] VITALS: Ht 182.9 cm; Wt 74.0 kg
[2020-08-30] MEDS ORDERED: DESV25TA PO (22:51)
[2020-08-30] MEDS ORDERED: METO1TAB87 PO (22:51)
[2020-08-30 23:06] LABS: HEMATOCRIT 47.2 % (42.0-52.0); HEMOGLOBIN 15.3 g/dl (13.5-17.5); MEAN CORPUSCULAR HGB CONC 32.4 g/dl (32.0-36.5); MEAN CORPUSCULAR VOLUME 86.3 fl (80.0-96.0); PLATELET COUNT, AUTOMATED 399 10^3/uL (150-450); RED BLOOD COUNT 5.47 10^6/uL (4.30-6.10); WHITE BLOOD COUNT 10.6 10^3/uL (4.0-10.0)
[2020-08-30 23:34] LABS: AMPHETAMINES LEVEL URINE NEGATIVE (NEGATIVE); BARBITURATES URINE NEGATIVE (NEGATIVE); BENZODIAZEPINES URINE NEGATIVE (NEGATIVE); CANNABINOIDS URINE POSITIVE (NEGATIVE); COCAINE METABOLITE URINE NEGATIVE (NEGATIVE); METHADONE URINE NEGATIVE (NEGATIVE); OPIATES URINE NEGATIVE (NEGATIVE); PHENCYCLIDINE URINE NEGATIVE (NEGATIVE)
[2020-08-30] MEDS ORDERED: METO25TA4 PO (23:43)
[2020-08-30] MEDS ORDERED: PRAZ1CAP PO (23:43)
[2020-08-30] MEDS ORDERED: PRIS1TAB PO (23:43)
[2020-08-30 23:47] LABS: ACETAMINOPHEN LEVEL < 2.0 UG/ML (10.0-30.0); ALBUMIN 4.3 GM/DL (3.2-5.2); ALT/SGPT 28 U/L (12-78); BILIRUBIN,DIRECT < 0.1 MG/DL (0.0-0.2); BILIRUBIN,TOTAL 0.3 MG/DL (0.2-1.0); BLOOD UREA NITROGEN 10 MG/DL (7-18); CALCIUM LEVEL 9.9 MG/DL (8.5-10.1); CARBON DIOXIDE LEVEL 30 MEQ/L (21-32); CHLORIDE LEVEL 106 MEQ/L (98-107); CREATININE FOR GFR 0.83 MG/DL (0.70-1.30); ETHYL ALCOHOL (ETHANOL) < 0.003 % (0.000-0.010); GLOMERULAR FILTRATION RATE > 60.0 (>60); GLUCOSE, FASTING 96 MG/DL (70-100); POTASSIUM SERUM 4.3 MEQ/L (3.5-5.1); SALICYLATE LEVEL 2.4 MG/DL (5.0-30.0); SODIUM LEVEL 140 MEQ/L (136-145); TOTAL PROTEIN 7.8 GM/DL (6.4-8.2)
[2020-08-31] MEDS ORDERED: METOPROLOL TART 25 MG TABLET PO ONE (09:00)
--- NOTE | 2020-08-31 11:38 | ECGEPIP ---
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
[2020-08-31] MEDS ORDERED: MAALOX 30 ML SUSP *UDC PO PRN (16:30)
[2020-08-31] MEDS ORDERED: ACETAMINOPHEN TAB 650MG DOSE (2X325MG) PO PRN (16:30)
[2020-08-31] MEDS ORDERED: MOM 30ML SUSPENSION UDC PO PRN (16:30)
[2020-08-31 17:44] VITALS: BP 134/86
[2020-08-31] MEDS: PRAZOSIN 1 MG CAP PO SCH (20:14)
[2020-08-31] MEDS: traZODone 50 MG TAB PO PRN (20:14)
[2020-08-31] MEDS: METOPROLOL TART 25 MG TABLET PO SCH (20:15)
[2020-09-01 06:13] VITALS: BP 127/76
[2020-09-01] MEDS: METOPROLOL TART 25 MG TABLET PO SCH ×2 (08:00→20:27)
[2020-09-01] MEDS ORDERED: VENLAFAXINE 37.5 MG TAB PO ONE (11:30)
[2020-09-01] MEDS: hydrOXYzine 50 MG TAB PO PRN ×2 (12:46→20:27)
--- NOTE | 2020-09-01 15:33 | HPEPDOC ---
[facility] Medical History & Physical Date of Admission Aug 31, 2020 Date of Service: Sep 01, 2020 Attending Physician: Gema West MD History and Physical Medical history and physical HISTORY OF PRESENT ILLNESS: Patient is a 25-year-old male with past medical history of PTSD, depression, anxiety, paranoia, bilateral hearing loss up to 75%, tachycardia who presented to [facility] emergency room after being found to cut himself and having suicidal ideations. The patient states he's been having many stressors at home including his leaving him for her ex boyfriend recently and moving across the [place] in their apartment complex, drug addiction. The patient admits to using methamphetamines and marijuana regularly and states his is also a methamphetamine user. He had feelings of increased hopelessness, tearfulness and feelings of suicidal ideation which led him to fish bait picker a dull knife and cut his left anterior forearm. He then called his who called the police. He also admits to being able to talk to ghosts, visual and auditory hallucinations. The patient was brought to the emergency room and evaluated. Vital signs were stable. He was admitted to inpatient mental health unit for unspecified depressive disorder. REVIEW OF SYSTEMS: CONSTITUTIONAL: Denies lack of energy, unexplained weight gain or weight loss, loss of appetite, fever, night sweats EYES: Denies eye drainage, eye pain, visual changes, dry/irritated eye EARS, NOSE, MOUTH, THROAT: Denies difficulty hearing, ringing in ears, mouth sores, loose teeth, sore throat, facial numbness or pain NECK: Denies swollen glands CARDIOVASCULAR: Denies irregular heartbeat, racing heart, chest pains, swelling of feet or legs, pain in legs with walking RESPIRATORY: Denies shortness of breath, night sweats, wheezing, sputum production, oxygen at home, coughing up blood, cough lasting > 1 month GASTROINTESTINAL: Denies abdominal pain, constipation, bloody stool, diarrhea, heartburn, nausea, vomiting GENITOURINARY: Denies painful urination, bloody urine, frequent urination, urgency, leaking urine, impotence MUSCULOSKELETAL: Denies joint pain, muscle pain, leg swelling INTEGUMENTARY: Denies rash, itching, new skin lesion, change in existing skin lesion, hair loss or increase, breast changes. NEUROLOGICAL: Denies headaches, dizziness, difficulty walking, numbness or tingling PAST MEDICAL HISTORY: 1. PTSD 2. Depression 3. Anxiety 4. Paranoia 5. Bilateral hearing loss up to 75% 6. Hx of tachycardia PAST SURGICAL HISTORY: 1. Ear tube placement x 8 2. tonsillectomy FAMILY HISTORY: Father: tachycardia. at 64 y/o Mother: depression, bipolar disorder. Alive SOCIAL HISTORY: Smokes cigarettes, 1-1/2 pack per day for the past 8 years. Also smokes marijuana recreationally. Smokes methamphetamines 12 times per month. Lived with his up until several weeks ago when she moved out. Follows with Zhane Duarte and Leah. He follows with his primary care provider at [facility]. ALLERGIES: Please see below. HOME MEDICATIONS: Please see below. PHYSICAL EXAMINATION: VS: Please see below CONSTITUTIONAL: No acute distress, resting comfortably, AAO x 3 EYES: PERRLA, EOM intact HENT, MOUTH: Normocephalic, atraumatic, moist mucous membranes, NECK: SUPPLE, no JVD, no lymphadenopathy, no carotid bruit CV: Regular rate and rhythm, S1S2 normal, no murmurs/rubs/gallops RESPIRATORY: Clear to auscultation bilaterally, no rales/rhonchi/wheezes GI: BS positive in 4 quadrants, soft, nontender, nondistended, no rebound or guarding, no organomegaly : Deferred MUSCULOSKELETAL: Normal ROM. No cyanosis, clubbing, swelling, joint deformity, extremity edema INTEGUMENTARY: Multiple scabbed, long cuts on the anterior forearm that run vertically and horizontally NEUROLOGIC: Cranial Nerves II-XII are intact, no focal deficits PSYCHIATRIC: Mood and affect are normal LABORATORY DATA: Please see below IMAGING: None ASSESSMENT: 25-year-old male with past medical history of PTSD, depression, anxiety, paranoia, bilateral hearing loss up to 75%, hx of tachycardia who was admitted to inpatient mental health unit for unspecified depressive disorder. PLAN: 1. Unspecified depressive disorder with suicidal ideations. Hx of depression, anxiety. Plan per psychiatry team. 2. PTSD, paranoia. Plan per psychiatry team 3. Hx of tachycardia. Stable with HR in 80's. C/w home medications. 4. Bilateral hearing loss. Stable, chronic. 5. Substance abuse (methamphetamines, marijuana). No s/s of withdrawl. F/u with [facility]. DISPOSITION: Thank you kindly for this consult. Will sign off at this time as chronic medical issues outside of his psychiatric illness seem to be stable. Please call to reassess at any time. Vital Signs Vital Signs Date Time Temp Pulse Resp B/P (MAP) Pulse Ox O2 Delivery O2 Flow Rate FiO2 09/01/20 09:30 Room Air 09/01/20 08:00 85 127/76 09/01/20 06:13 98.2 18 08/31/20 17:44 99 Home Medications Scheduled Desvenlafaxine Succinate (Pristiq) 25 Mg Tab.er.24h, 25 MG PO DAILY Metoprolol Tartrate (Metoprolol Tartrate) 25 Mg Tablet, 25 MG PO BID Prazosin Hcl (Prazosin HCl) 1 Mg Capsule, 1 MG PO QHS Allergies Coded Allergies: Sulfa (Sulfonamide Antibiotics) (Verified Allergy, Unknown, 08/30/20) cortisone (Verified Allergy, Unknown, 08/30/20) A-FIB/CHADSVASC A-FIB History Current/History of A-Fib/PAF?: No Current PO Anticoag Therapy: No Age/Risk Factor Scoring CHADSVASC: CHADSVASC Response (Comments) Value Age Risk Factor Age < 65 years old 0 Gender Risk Factor Male 0 Hx of CHF No 0 Hx of HTN No 0 Hx of Stroke/TIA/or VTE No 0 Hx of Diabetes No 0 Hx of Vascular Disease No 0 Total 0 Treatment Treatment ordered: NONE Other anticoagulant ordered: none Gema West MD Sep 01, 2020 15:33
[2020-09-01 18:25] VITALS: BP 137/81
[2020-09-01] MEDS: traZODone 50 MG TAB PO PRN (20:27)
[2020-09-01] MEDS: PRAZOSIN 1 MG CAP PO SCH (20:27)
[2020-09-02 06:33] VITALS: BP 123/59
[2020-09-02] MEDS: METOPROLOL TART 25 MG TABLET PO SCH ×2 (08:14→20:31)
[2020-09-02] MEDS: NICOTINE 21MG/24HR 1 EA TRANSDERMAL TD PRN (08:15)
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
[2020-09-02] MEDS: hydrOXYzine 50 MG TAB PO PRN ×2 (16:12→22:15)
[2020-09-02 18:46] VITALS: BP 138/88
[2020-09-02] MEDS: traZODone 50 MG TAB PO PRN (20:30)
[2020-09-02] MEDS: PRAZOSIN 1 MG CAP PO SCH (20:31)
[2020-09-03 07:10] VITALS: BP 105/55
[2020-09-03] MEDS: METOPROLOL TART 25 MG TABLET PO SCH ×2 (08:43→20:30)
[2020-09-03] MEDS: NICOTINE 21MG/24HR 1 EA TRANSDERMAL TD PRN (08:44)
[2020-09-03] MEDS: hydrOXYzine 50 MG TAB PO PRN ×2 (14:49→21:10)
[2020-09-03 18:09] VITALS: BP 123/72
[2020-09-03] MEDS: traZODone 50 MG TAB PO PRN (20:29)
[2020-09-03] MEDS: PRAZOSIN 1 MG CAP PO SCH (20:30)
[2020-09-03] MEDS ORDERED: traZODone 100 MG TAB PO PRN (22:00)
[2020-09-04 07:06] VITALS: BP 110/56
[2020-09-04] MEDS: METOPROLOL TART 25 MG TABLET PO SCH ×2 (08:25→20:21)
[2020-09-04] MEDS: CitaloPRAM (CeleXA) 20 MG TAB PO SCH (08:25)
[2020-09-04] MEDS: NICOTINE 21MG/24HR 1 EA TRANSDERMAL TD PRN (08:25)
[2020-09-04 18:46] VITALS: BP 128/70
[2020-09-04] MEDS ORDERED: PRAZOSIN 1 MG CAP PO SCH (21:00)
[2020-09-05 06:38] VITALS: BP 143/67
[2020-09-05 08:15] VITALS: BP 123/71
[2020-09-05] MEDS: METOPROLOL TART 25 MG TABLET PO SCH (08:15)
[2020-09-05] MEDS: CitaloPRAM (CeleXA) 20 MG TAB PO SCH (08:15)
[2020-09-05] MEDS: NICOTINE 21MG/24HR 1 EA TRANSDERMAL TD PRN (08:17)
[2020-09-05] MEDS ORDERED: NICO21PAT TD (10:30)
[2020-09-05] MEDS ORDERED: ABIL1TAB11 PO (10:30)
[2020-09-05] MEDS ORDERED: TRAZ-257 PO (10:30)
[2020-09-05] MEDS ORDERED: CELE20TA PO (10:30)
[2020-09-05] MEDS ORDERED: PRAZ2CAP PO (10:30)
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
--- NOTE | 2020-09-06 07:14 | MHIPN ---
DATE OF SERVICE: 09/03/2020 The patient today tells me that my nightmares are getting worse. He says he is not having suicidal thoughts and his anxiety is better controlled, but that he is still feeling depressed. MENTAL STATUS EXAM: This patient is alert and oriented times 3. He is pleasant. He is verbally spontaneously, but he does have a little bit of a speech impediment and sometimes you have to ask him to repeat what he is saying, but then you can understand him fairly well. He has no formal thought disorder. He says his mood is depressed. Affect appropriate to mood. He is not psychotic. Denying suicidal or homicidal ideations. Concentration was fair. Memory intact. Insight and judgment is fair. DIAGNOSES: * Major depressive disorder single episode moderate. * PTSD. * Unspecified anxiety disorder. * Cannabis use disorder. * Methamphetamine use disorder. * Rule out borderline intellectual functioning. TREATMENT PLAN: At this point we will continue to monitor the patient for ongoing depressive disorder and continued resolution of suicidal ideations. Since the patient says that his nightmares are getting worse I will go ahead and increase his prazosin; I believe he is on 1 mg I will increase it to 2 mg. H said that he was on Pristiq prior to admission, but apparently it is not available at our pharmacy so I will start him on Celexa 20 mg once daily. NOLAND
--- NOTE | 2020-09-08 07:58 | MHIPN ---
DATE: 09/04/2020 The patient today states that his nightmares continue to get worse. He says that the nightmares are about his past and a time when he was using drugs. He says that he still continues to feel depressed, although his anxiety has lessened. MENTAL STATUS EXAMINATION: He is alert and oriented times three. He is verbally spontaneous. He does have a bit of a speech impediment, but you are able to understand him. He says his mood is depressed. Affect appropriate to mood. He is not psychotic. He is denying suicidal or homicidal ideation. Concentration fair. Memory intact. Insight and judgment fair. DIAGNOSES: 1. Major depressive disorder, single episode, moderate. 2. Posttraumatic stress disorder. 3. Unspecified anxiety disorder. 4. Cannabis use disorder. 5. Methamphetamine use disorder. 6. Rule out borderline intellectual functioning. TREATMENT PLAN: At this point, patient says that he is still feeling depressed and that his anxiety is better, but he is having nightmares. We have just started him on citalopram for the depression and anxiety, and also I have increased his prazosin and his trazodone to help him with his sleep and nightmares. AROLDO
== END 2020-09-05 12:16 | disposition home or self-care (01) | DRG 751 ==
LOC: M ED 22:32 → M ED INP 08-31 16:25 → M PSY 08-31 17:38
PROVIDERS: ADMIT Psychiatry & Neurology Addiction Medicine; ATTEND Psychiatry & Neurology Psychiatry
DX: F32.1 Major depressive disorder, single episode, moderate (principal); F43.10 Post-traumatic stress disorder, unspecified; F41.9 Anxiety disorder, unspecified; F43.25 Adjustment disorder with mixed disturbance of emotions and conduct; F12.10 Cannabis abuse, uncomplicated; F17.210 Nicotine dependence, cigarettes, uncomplicated; F15.10 Other stimulant abuse, uncomplicated; Z79.899 Other long term (current) drug therapy; Z88.2 Allergy status to sulfonamides; Z88.8 Allergy status to other drugs, medicaments and biological substances; H91.93 Unspecified hearing loss, bilateral; Z63.0 Problems in relationship with spouse or partner; F79 Unspecified intellectual disabilities; Z91.5 Personal history of self-harm

== ENCOUNTER 2021-03-21 18:50 | Emergency (ER) | payer MEDICAID, OTHER ==
[~2021-03-21] VITALS: Ht 185.4 cm; Wt 68.2 kg
[~2021-03-21 18:50] MED LIST changes: +ABIL1TAB11 PO; +CELE20TA PO; +DESV25TA PO; +LABE100T4 PO; -LABE10TAB PO; +METO1TAB87 PO; +METO25TA4 PO; +NICO21PAT TD; +PRAZ2CAP PO; +PRIS1TAB PO; +TRAZ-257 PO
[2021-03-21 19:15] VITALS: BP 130/77
[2021-03-21 21:16] LABS: HEMATOCRIT 43.6 % (42.0-52.0); HEMOGLOBIN 14.5 g/dl (13.5-17.5); MEAN CORPUSCULAR HEMOGLOBIN 28.2 pg (27.0-33.0); MEAN CORPUSCULAR HGB CONC 33.3 g/dl (32.0-36.5); MEAN CORPUSCULAR VOLUME 84.7 fl (80.0-96.0); PLATELET COUNT, AUTOMATED 317 10^3/uL (150-450); RED BLOOD COUNT 5.15 10^6/uL (4.30-6.10); WHITE BLOOD COUNT 15.4 10^3/uL (4.0-10.0)
[2021-03-21 21:45] LABS: AMPHETAMINES LEVEL URINE POSITIVE (NEGATIVE); BARBITURATES URINE NEGATIVE (NEGATIVE); BENZODIAZEPINES URINE NEGATIVE (NEGATIVE); CANNABINOIDS URINE POSITIVE (NEGATIVE); COCAINE METABOLITE URINE NEGATIVE (NEGATIVE); METHADONE URINE NEGATIVE (NEGATIVE); OPIATES URINE NEGATIVE (NEGATIVE); PHENCYCLIDINE URINE NEGATIVE (NEGATIVE)
[2021-03-21 21:48] LABS: ACETAMINOPHEN LEVEL < 2.0 UG/ML (10.0-30.0); ALT/SGPT 21 U/L (12-78); BILIRUBIN,DIRECT 0.1 MG/DL (0.0-0.2); BILIRUBIN,TOTAL 0.5 MG/DL (0.2-1.0); BLOOD UREA NITROGEN 17 MG/DL (7-18); CALCIUM LEVEL 9.4 MG/DL (8.5-10.1); CARBON DIOXIDE LEVEL 26 MEQ/L (21-32); CHLORIDE LEVEL 109 MEQ/L (98-107); CREATININE FOR GFR 0.86 MG/DL (0.70-1.30); ETHYL ALCOHOL (ETHANOL) 0.004 % (0.000-0.010); GLOMERULAR FILTRATION RATE > 60.0 (>60); GLUCOSE, FASTING 111 MG/DL (70-100); POTASSIUM SERUM 3.8 MEQ/L (3.5-5.1); SALICYLATE LEVEL 3.6 MG/DL (5.0-30.0); SODIUM LEVEL 140 MEQ/L (136-145); THYROID STIMULATING HORMONE 0.709 uIU/ML (0.358-3.740); TOTAL PROTEIN 6.9 GM/DL (6.4-8.2)
[2021-03-21] MEDS ORDERED: NICOTINE 21MG/24HR 1 EA TRANSDERMAL TD ONE (22:30)
== END 2021-03-22 01:44 | disposition home or self-care (01) ==
LOC: M ED 18:50
DX: F19.10 Other psychoactive substance abuse, uncomplicated (principal); F32.9 Major depressive disorder, single episode, unspecified; F41.9 Anxiety disorder, unspecified; F43.10 Post-traumatic stress disorder, unspecified; I10 Essential (primary) hypertension; F17.211 Nicotine dependence, cigarettes, in remission; Z88.2 Allergy status to sulfonamides; Z88.8 Allergy status to other drugs, medicaments and biological substances; Z79.899 Other long term (current) drug therapy

== ENCOUNTER 2021-09-11 09:06 | Inpatient (IN) | payer MEDICAID, OTHER ==
[~2021-09-11] VITALS: Ht 182.9 cm; Wt 71.7 kg
[~2021-09-11 09:06] MED LIST changes: +guanFACINE 1 MG TAB PO ONE
--- OUTSIDE RECORDS SUMMARY | 2021-09-11 09:12 | CCD ---
Author Author [facility] Organization [facility] Address Unknown Phone Unavailable Care Team Providers Care Tape Deck Installer Name Role Phone PETTYLJENNIFER, RAMIRO PA Unavailable Unavailable MCELHERAN, RAMIRO PA Unavailable Unavailable MCELHERAN, RAMIRO PA Unavailable Unavailable MCELHERAN, RAMIRO PA Unavailable Unavailable MCELHERAN, RAMIRO PA Unavailable Unavailable MCELHERAN, RAMIRO PA Unavailable Unavailable MCELHERAN, RAMIRO PA Unavailable Unavailable MCELHERAN, RAMIRO PA Unavailable Unavailable MCELHERAN, RAMIRO PA Unavailable Unavailable MCELHERAN, RAMIRO PA Unavailable Unavailable MCELHERAN, RAMIRO PA Unavailable Unavailable MCELHERAN, RAMIRO PA Unavailable Unavailable MCELHERAN, RAMIRO PA Unavailable Unavailable MCELHERAN, RAMIRO PA Unavailable Unavailable MCELHERAN, RAMIRO PA Unavailable Unavailable MCELHERAN, RAMIRO PA Unavailable Unavailable MCELHERAN, RAMIRO PA Unavailable Unavailable MCELHERAN, RAMIRO PA Unavailable Unavailable MCELHERAN, RAMIRO PA Unavailable Unavailable MCELHERAN, RMAIRO PA Unavailable Unavailable MCELHERAN, RAMIRO PA Unavailable Unavailable MCELHERAN, RAMIRO PA Unavailable Unavailable MCELHERAN, RAMIRO PA Unavailable Unavailable MCELHERAN, RAMIRO PA Unavailable Unavailable MCELHERAN, RAMIRO PA Unavailable Unavailable MCELHERAN, RAMIRO PA Unavailable Unavailable MCELHERAN, RAMIRO PA Unavailable Unavailable MCELHERAN, RAMIRO PA Unavailable Unavailable MCELHERAN, RAMIRO PA Unavailable Unavailable Kupiec, A Ramiro VERTICAL LATHE OPERATOR Unavailable Unavailable Kupiec, A Ramiro VERTICAL LATHE OPERATOR Unavailable Unavailable Kupiec, A Ramiro VERTICAL LATHE OPERATOR Unavailable Unavailable Kupiec, A Ramiro VERTICAL LATHE OPERATOR Unavailable Unavailable Kupiec, A Ramiro VERTICAL LATHE OPERATOR Unavailable Unavailable Kupiec, A Ramiro VERTICAL LATHE OPERATOR Unavailable Unavailable DRAZEK, I YASMIN PA Unavailable Unavailable DRAZEK, I YASMIN PA Unavailable Unavailable DRAZEK, I YASMIN PA Unavailable Unavailable DRAZEK, I YASMIN PA Unavailable Unavailable DRAZEK, I YASMIN PA Unavailable Unavailable DRAZEK, I YASMIN PA Unavailable Unavailable DRAZEK, I YASMIN PA Unavailable Unavailable DRAZEK, I YASMIN PA Unavailable Unavailable DRAZEK, I YASMIN PA Unavailable Unavailable DRAZEK, I YASMIN PA Unavailable Unavailable DRAZEK, I YASMIN PA Unavailable Unavailable DRAZEK, I YASMIN PA Unavailable Unavailable DRAZEK, I YASMIN PA Unavailable Unavailable DRAZEK, I YASMIN PA Unavailable Unavailable DRAZEK, I YASMIN PA Unavailable Unavailable DRAZEK, I YASMIN PA Unavailable Unavailable DRAZEK, I YASMIN PA Unavailable Unavailable DRAZEK, I YASMIN PA Unavailable Unavailable DRAZEK, I YASMIN PA Unavailable Unavailable DRAZEK, I YASMIN PA Unavailable Unavailable DRAZEK, I YASMIN PA Unavailable Unavailable DRAZEK, I YASMIN PA Unavailable Unavailable DRAZEK, I YASMIN PA Unavailable Unavailable DRAZEK, I YASMIN PA Unavailable Unavailable DRAZEK, I YASMIN PA Unavailable Unavailable DRAZEK, I YASMIN PA Unavailable Unavailable DRAZEK, I YASMIN PA Unavailable Unavailable DRAZEK, I YASMIN PA Unavailable Unavailable DRAZEK, I YASMIN PA Unavailable Unavailable DRAZEK, I YASMIN PA Unavailable Unavailable Re-disclosure Warning The records that you are about to access may contain information from federally-assisted alcohol or drug abuse programs. If such information is present, then the following federally mandated warning applies: This information has been disclosed to you from records protected by federal confidentiality rules (42 CFR part 2). The federal rules prohibit you from making any further disclosure of this information unless further disclosure is expressly permitted by the written consent of the person to whom it pertains or as otherwise permitted by 42 CFR part 2. A general authorization for the release of medical or other information is NOT sufficient for this purpose. The Federal rules restrict any use of the information to criminally investigate or prosecute any alcohol or drug abuse patient.The records that you are about to access may contain highly sensitive health information, the redisclosure of which is protected by Article 27-F of the [facility] Public Health law. If you continue you may have access to information: Regarding HIV / AIDS; Provided by facilities licensed or operated by the [facility] Office of Mental Health; or Provided by the [facility] Office for People With Developmental Disabilities. If such information is present, then the following [facility] mandated warning applies: This information has been disclosed to you from confidential records which are protected by state law. State law prohibits you from making any further disclosure of this information without the specific written consent of the person to whom it pertains, or as otherwise permitted by law. Any unauthorized further disclosure in violation of state law may result in a fine or detention sentence or both. A general authorization for the release of medical or other information is NOT sufficient authorization for further disc losure. Family History Family Member Name Family Member Gender Family Member Status Date o f Status Description Data Source(s) Unknown Male Problem MEDENT ([facility]) () Encounters Encounter Providers Location Date Indications Data Source(s ) Unknown [address] [facility] [address] 09/29/2020 12:00:00 AM EST eCW1 ([facility]) Out[place] [address] [facility] [address] 09/09/2020 12:00:00 AM EST eCW1 ([facility]) Unknown [address] [facility] [address] 08/31/2020 12:00:00 AM EST eCW1 ([facility]) Outpatient [address] [facility] [address] 08/30/2020 12:00:00 AM EST eCW1 ([facility]) Unknown [address] [facility] [address] 08/29/2020 12:00:00 AM EST eCW1 ([facility]) Outpatient Attender: RAMIRO PATEL Physical Therapy 08/23/2020 03:15:00 PM EDT MEDENT ([facility]) Outpatient Attender: YASMIN PATEL Physical Therapy 07/22/2020 0 1:30:00 PM EDT MEDENT ([facility]) Outpatient Attender: RAMIRO PATEL Physical Therapy 07/14/2020 04:00:00 PM EDT MEDENT ([facility]) ( in Healthcare facility) Attender: Ramiro Mooney NP 06/07/2020 07:36:00 PM EDT - 06/08/2020 12:26:00 PM EDT [facility] Immunizations Vaccine Date Status Description Data Source(s) COVID-19 VACCINE Sathya 06/02/2021 12:00:00 AM EDT completed [facility] Vaccine Series Complete: YESThis Data wa s Submitted to [facility] Via [facility]. influenza, recombinant, quadrIvalent,injectable, prese rvative free 08/30/2020 03:22:00 PM EST completed eCW1 ([facility]) influenza, recombinant, quadrIvalent,injectable, prese rvative free 08/30/2020 03:22:00 PM EST completed eCW1 ([facility]) influenza, recombinant, quadrIvalent,injectable, prese rvative free 08/30/2020 03:22:00 PM EST completed eCW1 ([facility]) influenza, recombinant, quadrIvalent,injectable, prese rvative free 08/30/2020 03:22:00 PM EST completed eCW1 ([facility]) influenza, recombinant, quadrIvalent,injectable, prese rvative free 08/30/2020 03:22:00 PM EST completed eCW1 ([facility]) Medications Medication Brand Name Start Date Product Form Dose Route Admi nistrative Instructions Pharmacy Instructions Status Indications Reaction Description Data Source(s) Cephalexin 500 MG Oral Capsule [Keflex] Keflex 07/22/2020 12:00:0 0 AM EDT ORAL active [facility] ([facility]) tramadol hydrochloride 50 MG Oral Tablet Tramadol HCL 07/14/2020 12:00:00 AM EDT active [facility] ([facility]) Insurance Providers Payer name Policy type / Coverage type Policy ID Covered constitution party ID Covered constitution party's relationship to lui Policy Lui Plan Information Medicaid S [id number] S [id number] Managed Care [place] P [id number] S [id number] Managed Care [place] P [id number] S [id number] Managed Care [place] P [id number] S [id number] Medicaid S [id number] S [id number] Managed Care - Community Plan [facility] P [id number] S [id number] Medicaid P [id number] Medicaid S [id number] S [id number] Managed Care - [facility] Community Plan P [id number] S [id number] [facility] MEDICAID [id number] Corinne [id number] Managed Care - [facility] Community Plan P [id number] S [id number] [facility] Communty Plan Medicaid [id number] Self [id number] [facility] COMMUNTY PLAN [id number] [facility] O [id number] S [id number] [facility] Communty Plan Medicaid [id number] Self [id number] [facility] Communty Plan Medicaid [id number] Self [id number] [facility] COMMUNTY PLAN [id number] MVP Managed Medicaid [id number] Preferred Provider Organization (PPO) [id number] [facility] [id number] Preferred Provider Organization (PPO) [id number] [facility] Communty Plan Medicaid [id number] Self [id number] [facility] Communty Plan Medicaid [id number] Self [id number] [facility] Communty Plan Medicaid [id number] Self [id number] MVP MDCD [id number] [facility] O [id number] S [id number] MEDICAID M [id number] S [id number] MVP MDCD Health Maintenance Organization (HMO) [id number] Self [id number] Private Pay Commercial [id number] Self [id number] [facility] [place] H[place] [id number] 18 [id number] [employer] [facility] [place] [id number] 18 [id number] [facility] Community Plan Medicaid [id number] Self [id number] [facility] [id number] SP [id number] MEDICAID [id number] SP [id number] [employer] COMMUNITY PLAN MCDO [id number] SP [id number] MEDICAID [id number] SP [id number] AETNA [place] [id number] SP [id number] AETNA P [id number] S [id number] BRANDEN [id number] SP [id number] Managed Care BCBS O [id number] S [id number] Medicaid Dental O [id number] Accidental O UNAVAILABLE S UNAVAIL ABLE [employer] COMMUNITY PLAN MCDHMO [id number] SP [id number] Managed Care Branden P UNAVAILABLE S UNAVAILABLE [facility] [id number] SP [id number] [facility] COMMUNITY PLAN [facility] [id number] SP [id number] UNHC COMMUNITY PLAN XIX [id number] [facility] HEA [id number] S [id number] HC COMMUNITY PLAN XIX [id number] 18 [id number] [facility] HEA [id number] S [id number] MEDICAID HEA [id number] S [id number] MEDICAID HEALTH MAINTENANCE ORGANIZATION HEA [id number] S MEDICAID -O/P [id number] MEDICAID -CLINIC [id number] Problems, Conditions, and Diagnoses Code Display Name Description Problem Type Effective Dates Data Source(s) F43.10 [id number] PTSD (post-traumatic stress disorder) Pro blem 08/30/2020 12:00:00 AM EST eCW1 ([facility]) F33.2 [id number] Severe episode of re current major depressive disorder, without psychotic features Problem 08/30/2020 12:00:00 AM EST eCW1 ([facility]) Surgeries/Procedures Procedure Description Date Indications Data Source(s) Immunization: Flublok Quadrivalent (18 years & older) 0.5mL IM (Influenza) 08/30/2020 12:00:00 AM EST eCW1 ([facility]) Results No Information Social History Code Duration Value Status Description Data Source(s ) Smoking 09/09/2020 12:00:00 AM EST Current Smoker completed Curre nt Smoker eCW1 ([facility]) Smoking 09/09/2020 12:00:00 AM EST Current Smoker completed Curre nt Smoker eCW1 ([facility]) Smoking 09/09/2020 12:00:00 AM EST Current Smoker completed Curre nt Smoker eCW1 ([facility]) Smoking 08/30/2020 12:00:00 AM EST Current Smoker completed Curre nt Smoker eCW1 ([facility]) Smoking 08/30/2020 12:00:00 AM EST Current Smoker completed Curre nt Smoker eCW1 ([facility]) Vital Signs ID Date Data Source UNK Name Value Range Interpretation Code Description Data Source(s) Body weight 173 [lb_av] 173 [lb_av] eCW1 ([facility]) Body height 72 [in_i] 72 [in_i] eCW1 ([facility]) Body mass index (BMI) [Ratio] 23.46 kg/m2 23.46 kg/m2 eCW1 ([facility]) Heart rate 98 /min 98 /min eCW1 ([facility]) Respiratory rate 18 /min 18 /min eCW1 ([facility]) Body temperature 97.8 [degF] 97.8 [degF] eCW1 ( [facility]) Systolic blood pressure 128 mm[Hg] 128 mm[Hg] e CW1 ([facility]) Diastolic blood pressure 60 mm[Hg] 60 mm[Hg] eCW1 ([facility]) Body weight 172.2 [lb_av] 172.2 [lb_av] eCW1 ([facility]) Body height 72 [in_i] 72 [in_i] eCW1 ([facility]) Body mass index (BMI) [Ratio] 23.35 kg/m2 23.35 kg/m2 eCW1 ([facility]) Heart rate 60 /min 60 /min eCW1 ([facility]) Respiratory rate 18 /min 18 /min eCW1 ([facility]) Body temperature 97.0 [degF] 97.0 [degF] eCW1 ( [facility]) Systolic blood pressure 117 mm[Hg] 117 mm[Hg] e CW1 ([facility]) Diastolic blood pressure 75 mm[Hg] 75 mm[Hg] eCW1 ([facility]) Body weight 180.00 [lb_av] 180.00 [lb_av] CLEMENTEN T ([facility] ) Body temperature 98.0 [degF] 98.0 [degF] MEDENT ([facility] ) Body height 71 [in_i] 71 [in_i] MEDALFONSO ([facility] ) 5'11" Body mass index (BMI) [Ratio] 25.1 kg/m2 25.1 k g/m2 MEDENT ([facility] )
--- OUTSIDE RECORDS SUMMARY | 2021-09-11 10:04 | CCD ---
Author Author [facility] Organization [facility] Address Unknown Phone Unavailable Care Team Providers Care Administrative Professional Name Role Phone PETTYLJENNIFER, RAMIRO PA Unavailable [...] RAMIRO PA Unavailable Unavailable Kupiec, A Ramiro VETERINARY MEDICINE DOCTOR Unavailable Unavailable Kupiec, A Ramiro VETERINARY MEDICINE DOCTOR Unavailable Unavailable Kupiec, A Ramiro VETERINARY MEDICINE DOCTOR Unavailable Unavailable Kupiec, A Ramiro VETERINARY MEDICINE DOCTOR Unavailable Unavailable Kupiec, A Ramiro VETERINARY MEDICINE DOCTOR Unavailable Unavailable Kupiec, A Ramiro VETERINARY MEDICINE DOCTOR Unavailable Unavailable DRAZEK, I YASMIN PA Unavailable [...] is protected by Article 27-F of the [place] Public Health law. If you continue you may have access to information: Regarding HIV / AIDS; Provided by facilities licensed or operated by the [place] Office of Mental Health; or Provided by the [place] [facility] Office for People With Developmental Disabilities. If such information is present, then the following [place] [facility] mandated warning applies: This information has been [...] law may result in a fine or residential sentence or both. A general authorization for the release of medical or other information is NOT sufficient authorization for further disc losure. Family History Family Member Name Family Member Gender Family Member Status Date o f Status Description Data Source(s) Unknown Male Problem MEDENT ([facility]) () Encounters Encounter Providers Location Date Indications Data Source(s ) [place] [address] [address] 09/29/2020 12:00:00 AM EST eCW1 ([facility]) [place] [address] [facility] [address] 09/09/2020 12:00:00 AM EST eCW1 ([facility]) [place] [address] [address] 08/31/2020 12:00:00 AM EST eCW1 ([facility]) [place] [address] [facility] [address] 08/30/2020 12:00:00 AM EST eCW1 ([facility]) Unknown [address] [facility] [address] 08/29/2020 12:00:00 AM EST eCW1 ([facility]) Outpatient Attender: RAMIRO PATEL Physical Therapy 08/23/2020 03:15:00 PM EDT MEDENT ([facility]) Outpatient Attender: YASMIN PATEL Physical Therapy 07/22/2020 0 1:30:00 PM EDT MEDENT ([facility]) Outpatient Attender: RAMIRO PATEL Physical Therapy 07/14/2020 04:00:00 PM EDT MEDENT ([facility]) ( in Healthcare facility) Attender: Ramiro Mooney NP 06/07/2020 07:36:00 PM EDT - 06/08/2020 12:26:00 PM EDT [facility] Immunizations Vaccine Date Status Description Data Source(s) COVID-19 VACCINE Sathya 06/02/2021 12:00:00 AM EDT completed [facility] Vaccine Series Complete: YESThis Data wa s Submitted to [facility] Via [facility]. influenza, recombinant, quadrIvalent,injectable, prese rvative free 08/30/2020 03:22:00 PM EST completed eCW1 ([facility]) influenza, recombinant, quadrIvalent,injectable, prese rvative free 08/30/2020 03:22:00 PM EST completed eCW1 ([facility]) influenza, recombinant, quadrIvalent,injectable, prese rvative free 08/30/2020 03:22:00 PM EST completed eCW1 ([facility]) influenza, recombinant, quadrIvalent,injectable, prese rvative free 08/30/2020 03:22:00 PM EST completed eCW1 ([facility]) influenza, recombinant, quadrIvalent,injectable, prese rvative free 08/30/2020 03:22:00 PM EST completed eCW1 ([facility]) Medications Medication Brand Name Start Date Product [...] type / Coverage type Policy ID Covered republican ID Covered republican's relationship to lui Policy Lui Plan Information Medicaid S [id number] S [id number] Managed Care Branden P [id number] S [id number] Managed Care Branden P [id number] S [id number] Managed Care Branden P [id number] S [id number] Medicaid S [id number] S [id number] Managed Care - Community Plan [facility] P [id number] S [id number] Medicaid P [id number] S [id number] Medicaid S [id number] S [id number] Managed Care - [facility] Community Plan P [id number] S [id number] [facility] MEDICAID [id number] Corinne [id number] Managed Care - [facility] Community Plan P [id number] S [id number] [facility] Communty Plan Medicaid [id number] Self [id number] [facility] COMMUNTY PLAN [id number] 18 [id number] [facility]) O [id number] S [id number] [facility] Communty Plan Medicaid [id number] Self [id number] [facility] Communty Plan Medicaid [id number] Self [id number] [facility] COMMUNTY PLAN [id number] 18 [id number] MVP Managed Medicaid [id number] Preferred Provider Organization (PPO) [id number] [facility] [id number] Preferred Provider Organization (PPO) [id number] [facility] Communty Plan Medicaid [id number] Self [id number] [facility] Communty Plan Medicaid [id number] Self [id number] [facility] Communty Plan Medicaid [id number] Self [id number] MVP MDCD [id number] 18 [id number] [facility] O [id number] S [id number] MEDICAID M [id number] S [id number] MVP MDCD Health Maintenance Organization (HMO) [id number] Self [id number] Private Pay Commercial [id number] Self [id number] [facility] [place] H[place] [id number] 18 [id number] [facility] [place] [place] [id number] 18 [id number] [facility] Community Plan Medicaid [id number] Self [id number] [facility] [id number] SP [id number] MEDICAID [id number] SP [id number] [employer] COMMUNITY PLAN MCDO [id number] SP [id number] MEDICAID [id number] SP [id number] [facility]ETNA [facility] TX [id number] SP [id number] AETNA P [id number] S [id number] BRANDEN [id number] SP [id number] Managed Care BCBS O [id number] S [id number] Medicaid Dental O [id number] Accidental O UNAVAILABLE S UNAVAIL ABLE UNHC COMMUNITY PLAN MCDHMO [id number] SP [id number] Managed Care Branden P UNAVAILABLE S UNAVAILABLE [facility] [id number] SP [id number] UNHC COMMUNITY PLAN [facility] [id number] SP [id number] UNHC COMMUNITY PLAN XIX [id number] 18 [id number] [facility] HEA [id number] S 1 [id number] HC COMMUNITY PLAN XIX [id number] 18 [id number] [facility] HEA [id number] S [id number] MEDICAID HEA [id number] S [id number] MEDICAID HEALTH MAINTENANCE ORGANIZATION HEA [id number] S MEDICAID -O/P [id number] 18 [id number] MEDICAID -CLINIC [id number] 18 [id number] Problems, Conditions, and Diagnoses Code Display Name Description Problem Type Effective Dates Data Source(s) F43.10 [id number] PTSD (post-traumatic stress disorder) Pro blem 08/30/2020 12:00:00 AM EST eCW1 ([facility]) F33.2 [id number] Severe episode of re current major depressive disorder, without psychotic features Problem 08/30/2020 12:00:00 AM EST eCW1 ([facility]) Surgeries/Procedures Procedure Description Date Indications Data Source(s) Immunization: Flublok Quadrivalent (18 years & older) 0.5mL IM (Influenza) 08/30/2020 12:00:00 AM EST eCW1 ([facility]) Results No Information Social History Code Duration Value Status Description Data Source(s ) Smoking 09/09/2020 12:00:00 AM EST Current Smoker completed Curre nt Smoker eCW1 ([facility]) Smoking 09/09/2020 12:00:00 AM EST Current Smoker completed Curre nt Smoker eCW1 ([facility]) Smoking 09/09/2020 12:00:00 AM EST Current Smoker completed Curre nt Smoker eCW1 ([facility]) Smoking 08/30/2020 12:00:00 AM EST Current Smoker completed Curre nt Smoker eCW1 ([facility]) Smoking 08/30/2020 12:00:00 AM EST Current Smoker completed Curre nt Smoker eCW1 ([facility]) Vital Signs ID Date Data Source UNK Name Value Range Interpretation Code Description Data Source(s) Body weight 173 [lb_av] 173 [lb_av] eCW1 ([facility]s include [facility] beds at [facility]) Body height 72 [in_i] 72 [in_i] eCW1 ([facility]) Body mass index (BMI) [Ratio] 23.46 kg/m2 23.46 kg/m2 eCW1 ([facility]) Heart rate 98 /min 98 /min eCW1 ([facility]) Respiratory rate 18 /min 18 /min eCW1 ([facility]) Body temperature 97.8 [degF] 97.8 [degF] eCW1 ( [facility]) Systolic blood pressure 128 mm[Hg] 128 mm[Hg] e CW1 ([facility]) Diastolic blood pressure 60 mm[Hg] 60 mm[Hg] eCW1 ([facility]) Body weight 172.2 [lb_av] 172.2 [lb_av] eCW1 ([facility]) Body height 72 [in_i] 72 [in_i] eCW1 ([facility]) Body mass index (BMI) [Ratio] 23.35 kg/m2 23.35 kg/m2 eCW1 ([facility]) Heart rate 60 /min 60 /min eCW1 ([facility]) Respiratory rate 18 /min 18 /min eCW1 ([facility]) Body temperature 97.0 [degF] 97.0 [degF] eCW1 ( [facility]) Systolic blood pressure 117 mm[Hg] 117 mm[Hg] e CW1 ([facility]) Diastolic blood pressure 75 mm[Hg] 75 mm[Hg] eCW1 ([facility]) Body weight 180.00 [lb_av] 180.00 [lb_av] CLEMENTEN T ([facility] ) Body temperature 98.0 [degF] 98.0 [degF] MEDENT ([facility] ) Body height 71 [in_i] 71 [in_i] MEDALFONSO ([facility] ) 5'11" Body mass index (BMI) [Ratio] 25.1 kg/m2 25.1 k g/m2 MEDENT ([facility] )
[2021-09-11] MEDS ORDERED: NICOTINE 21MG/24HR 1 EA TRANSDERMAL TD ONE (10:15)
[2021-09-11 10:56] LABS: HEMATOCRIT 42.8 % (42.0-52.0); HEMOGLOBIN 14.2 g/dl (13.5-17.5); MEAN CORPUSCULAR HEMOGLOBIN 28.5 pg (27.0-33.0); MEAN CORPUSCULAR HGB CONC 33.2 g/dl (32.0-36.5); MEAN CORPUSCULAR VOLUME 85.8 fl (80.0-96.0); PLATELET COUNT, AUTOMATED 361 10^3/uL (150-450); RED BLOOD COUNT 4.99 10^6/uL (4.30-6.10); WHITE BLOOD COUNT 11.9 10^3/uL (4.0-10.0)
[2021-09-11 11:25] LABS: AMPHETAMINES LEVEL URINE POSITIVE (NEGATIVE); BARBITURATES URINE NEGATIVE (NEGATIVE); BENZODIAZEPINES URINE NEGATIVE (NEGATIVE); CANNABINOIDS URINE POSITIVE (NEGATIVE); COCAINE METABOLITE URINE NEGATIVE (NEGATIVE); METHADONE URINE NEGATIVE (NEGATIVE); OPIATES URINE NEGATIVE (NEGATIVE); PHENCYCLIDINE URINE NEGATIVE (NEGATIVE)
[2021-09-11 11:26] LABS: ACETAMINOPHEN LEVEL 2.1 UG/ML (10.0-30.0); ALBUMIN 3.8 GM/DL (3.2-5.2); ALT/SGPT 21 U/L (12-78); BILIRUBIN,DIRECT < 0.1 MG/DL (0.0-0.2); BILIRUBIN,TOTAL 0.3 MG/DL (0.2-1.0); BLOOD UREA NITROGEN 8 MG/DL (7-18); CALCIUM LEVEL 9.4 MG/DL (8.5-10.1); CARBON DIOXIDE LEVEL 28 MEQ/L (21-32); CHLORIDE LEVEL 110 MEQ/L (98-107); CREATININE FOR GFR 0.85 MG/DL (0.70-1.30); ETHYL ALCOHOL (ETHANOL) < 0.003 % (0.000-0.010); GLOMERULAR FILTRATION RATE > 60.0 (>60); GLUCOSE, FASTING 99 MG/DL (70-100); POTASSIUM SERUM 4.3 MEQ/L (3.5-5.1); SALICYLATE LEVEL 3.8 MG/DL (5.0-30.0); SODIUM LEVEL 143 MEQ/L (136-145); THYROID STIMULATING HORMONE 0.507 uIU/ML (0.358-3.740); TOTAL PROTEIN 6.8 GM/DL (6.4-8.2)
[2021-09-11] MEDS ORDERED: MOM 30ML SUSPENSION UDC PO PRN (14:45)
[2021-09-11] MEDS ORDERED: MAALOX 30 ML SUSP *UDC PO PRN (14:45)
[2021-09-11] MEDS ORDERED: OLANZapine 5 MG TAB PO PRN (14:45)
[2021-09-11] MEDS ORDERED: ACETAMINOPHEN TAB 650MG DOSE (2X325MG) PO PRN (14:45)
[2021-09-11] MEDS ORDERED: traZODone 50 MG TAB PO PRN (14:45)
--- NOTE | 2021-09-11 15:03 | MHIPNPDOC ---
[facility] Progress Note Progress Note DATE OF SERVICE: 09/11/21 Patient presented by PSA, meets criteria for involuntary admission. Had an altercation with his at home, police were called after making suicidal statements regarding him wanting to harm himself, in context of methamphetamine and cannabis use., Acute stressors of losing apartment, leaving him also reports command auditory hallucinations of people wanting him . Vital Signs Vital Signs Date Time Temp Pulse Resp B/P (MAP) Pulse Ox O2 Delivery O2 Flow Rate FiO2 09/11/21 09:17 97.0 89 19 101/66 (78) 98 Room Air Laboratory Data 24H Labs Laboratory Tests 2 09/11/21 10:13: Urine Opiates Screen NEGATIVE, Urine Methadone Screen NEGATIVE, Urine Barbiturates Screen NEGATIVE, Urine Phencyclidine Screen NEGATIVE, Urine Amphetamines Screen POSITIVEH, Urine Benzodiazepines Screen NEGATIVE, Urine Cocaine Metabolite Screen NEGATIVE, Urine Cannabinoids Screen POSITIVEH 09/11/21 10:20: Nucleated Red Blood Cells % (auto) 0.0, Anion Gap 5L, Glomerular Filtration Rate > 60.0, Calcium Level 9.4, Total Bilirubin 0.3, Direct Bilirubin < 0.1, Aspartate Amino Transf (AST/SGOT) 14, Alanine Aminotransferase (ALT/SGPT) 21, Alkaline Phosphatase 81, Total Protein 6.8, Albumin 3.8, Albumin/Globulin Ratio 1.3, Thyroid Stimulating Hormone (TSH) 0.507, Salicylates Level 3.8L, Acetaminophen Level 2.1L, Ethyl Alcohol Level < 0.003 CBC/BMP Laboratory Tests 09/11/21 10:20 Allergies Coded Allergies: Sulfa (Sulfonamide Antibiotics) (Verified Allergy, Unknown, 08/30/20) cortisone (Verified Allergy, Unknown, 08/30/20) KATELYN PORTILLO MD Sep 11, 2021 15:03
--- OUTSIDE RECORDS SUMMARY | 2021-09-11 15:26 | CCD ---
Author Author [facility] Organization [facility] Address Unknown Phone Unavailable Care Team Providers Care Inside Phone Sales Name Role Phone RAMIRO MURO PA Unavailable Unavailable MCELHERBONIFACIO, RAMIRO PA Unavailable Unavailable MCELHERBONIFACIO, ARMIRO PA Unavailable Unavailable MCELHERBONIFACIO, RAMIRO PA Unavailable Unavailable MCELHERBONIFACIO, RAMIRO PA Unavailable Unavailable MCELHERBONIFACIO, RAMIRO PA Unavailable Unavailable MCELHERBONIFACIO, RAMIRO PA Unavailable Unavailable MCELHERBONIFACIO, RAMIRO PA Unavailable Unavailable MCELHERAN, RAMIRO PA Unavailable Unavailable MCELHERAN, RAMIRO PA Unavailable Unavailable MCELHERAN, RAMIRO PA Unavailable Unavailable MCELHERAN, RAMIRO PA Unavailable Unavailable MCELHERBONIFACIO, RAMIRO PA Unavailable Unavailable MCELHERBONIFACIO RAMIRO PA Unavailable Unavailable MCELHERBONIFACIO, RAMIRO PA Unavailable Unavailable MCELHERBONIFACIO, RAMIRO PA Unavailable Unavailable MCELHERBONIFACIO, RAMIRO PA Unavailable Unavailable MCELHERBONIFACIO, RAMIRO PA Unavailable Unavailable MCELHERBONIFACIO, RAMIRO PA Unavailable Unavailable MCELHERBONIFACIO, RAMIRO PA Unavailable Unavailable MCELHERBONIFACIO, RAMIRO PA Unavailable Unavailable MCELHERBONIFACIO, RAMIRO PA Unavailable Unavailable MCELHERBONIFACIO, RAMIRO PA Unavailable Unavailable MCELHERBONIFACIO, RAMIRO PA Unavailable Unavailable MCELHERBONIFACIO, RAMIRO PA Unavailable Unavailable MCELHERBONIFACIO, RAMIRO PA Unavailable Unavailable MCELHERBONIFACIO, RAMIRO PA Unavailable Unavailable MCELHERBONIFACIO RAMIRO PA Unavailable Unavailable MCELHERBONIFACIO, RAMIRO PA Unavailable Unavailable Kupiec, A Ramiro COMMUNITY MENTAL HEALTH SOCIAL WORKER Unavailable Unavailable Kupiec, A Ramrio COMMUNITY MENTAL HEALTH SOCIAL WORKER Unavailable Unavailable Kupiec, A Ramiro COMMUNITY MENTAL HEALTH SOCIAL WORKER Unavailable Unavailable Kupiec, A Ramiro COMMUNITY MENTAL HEALTH SOCIAL WORKER Unavailable Unavailable Kupiec, A Ramiro COMMUNITY MENTAL HEALTH SOCIAL WORKER Unavailable Unavailable Kupiec, A Ramiro COMMUNITY MENTAL HEALTH SOCIAL WORKER Unavailable Unavailable DRAZEK, I YASMIN PA Unavailable [...] is protected by Article 27-F of the [facility] Public Health law. If you continue you may have access to information: Regarding HIV / AIDS; Provided by facilities licensed or operated by the [facility] Office of Mental Health; or Provided by the [facility] Office for People With Developmental Disabilities. If such information is present, then the following [facility] mandated warning applies: This information has been [...] law may result in a fine or mcfp sentence or both. A general authorization for the release of medical or other information is NOT sufficient authorization for further disc losure. Family History Family Member Name Family Member Gender Family Member Status Date o f Status Description Data Source(s) Unknown Male Problem MEDENT ([facility]) () Encounters Encounter Providers Location Date Indications Data Source(s ) [place] [address] [facility] [address] 09/29/2020 12:00:00 AM EST eCW1 ([facility]) [place] [address] [facility] [address] 09/09/2020 12:00:00 AM EST eCW1 ([facility]) [place] [address] [address] 08/31/2020 12:00:00 AM EST eCW1 ([facility]) [place] [address] [facility] [address] 08/30/2020 12:00:00 AM EST eCW1 ([facility]) [place] [address] [address] 08/29/2020 12:00:00 AM EST eCW1 ([facility]) Outpatient Attender: RAMIRO PATEL Physical Therapy 08/23/2020 03:15:00 PM EDT MEDENT ([facility]) Outpatient Attender: YASMIN PATEL Physical Therapy 07/22/2020 0 1:30:00 PM EDT MEDENT ([facility]) Outpatient Attender: RAMIRO PATEL Physical Therapy 07/14/2020 04:00:00 PM EDT MEDENT ([facility]) [place] ( in Healthcare facility) Attender: Ramiro Mooney NP 06/07/2020 07:36:00 PM EDT - 06/08/2020 12:26:00 PM EDT [facility] Immunizations Vaccine Date Status Description Data Source(s) COVID-19 VACCINE Sathya 06/02/2021 12:00:00 AM EDT completed [facility] Vaccine Series Complete: YESThis Data wa s Submitted to [facility] Via [facility]. influenza, recombinant, quadrIvalent,injectable, prese rvative free 08/30/2020 03:22:00 PM EST completed eCW1 ([facility]) influenza, recombinant, quadrIvalent,injectable, prese rvative free 08/30/2020 03:22:00 PM EST completed eCW1 ([facility]) influenza, recombinant, quadrIvalent,injectable, prese rvative free 08/30/2020 03:22:00 PM EST completed eCW1 ([facility]) influenza, recombinant, quadrIvalent,injectable, prese rvative free 08/30/2020 03:22:00 PM EST completed eCW1 ([facility]) influenza, recombinant, quadrIvalent,injectable, prese rvative free 08/30/2020 03:22:00 PM EST completed eCW1 ([facility]) Medications Medication Brand Name Start Date Product [...] type / Coverage type Policy ID Covered libertarian ID Covered libertarian's relationship to lui Policy Lui Plan Information Medicaid S [id number] S [id number] Managed Care [place] P [id number] S [id number] Managed [place] P [id number] S [id number] Managed [place] P [id number] S [id number] Medicaid S [id number] S [id number] Managed Care - Community Plan [facility] P [id number] S [id number] Medicaid P [id number] S [id number] Medicaid S [id number] S [id number] Managed Care - [facility] Community Plan P [id number] S [id number] [facility] MEDICAID [id number] Corinne [id number] Managed Care - [facility] Community Plan P [id number] S [id number] [place] Medicaid [id number] Self [id number] [facility] COMMUNTY PLAN [id number] 18 [id number] [facility] O [id number] S [id number] [facility] Communty Plan Medicaid [id number] Self [id number] [facility] Communty Plan Medicaid [id number] Self [id number] [facility] COMMUNTY PLAN [id number] 18 [id number] MVP Managed Medicaid [id number] Preferred Provider Organization (PPO) [id number] [facility] [id number] Preferred Provider Organization (PPO) [id number] [facility] Communty Plan Medicaid [id number] Self [id number] [facility] Communty Plan Medicaid [id number] Self [id number] [facility] Communty Plan Medicaid [id number] Self [id number] MVP MDCD [id number] 18 [id number] [facility] O [id number] S [id number] MEDICAID M [id number] S [id number] MVP MDCD Health Maintenance Organization (HMO) [id number] Self [id number] Private Pay Commercial [id number] Self [id number] [facility] [place] H[place] [id number] 18 [id number] [facility] [place] [id number] 18 [id number] [facility] Community Plan Medicaid [id number] Self [id number] [facility] [id number] SP [id number] MEDICAID [id number] SP [id number] UNHC COMMUNITY PLAN MCDO [id number] SP [id number] MEDICAID [id number] SP [id number] AETNA [place] [id number] SP [id number] AETNA P [id number] S [id number] BRANDEN [id number] SP [id number] Managed Care BCBS O [id number] S [id number] Medicaid Dental O [id number] Accidental O UNAVAILABLE S UNAVAIL ABLE [facility] COMMUNITY PLAN [id number] [id number] SP [id number] Managed Care [place] P UNAVAILABLE S UNAVAILABLE [facility] [id number] SP [id number] UNHC COMMUNITY PLAN [facility] [id number] SP [id number] UNHC COMMUNITY PLAN XIX [id number] 18 [id number] [facility] HEA [id number] S [id number] [facility] COMMUNITY PLAN XIX [id number] 18 [id number] [facility] HEA [id number] S [id number] MEDICAID HEA [id number] S [id number] MEDICAID HEALTH MAINTENANCE ORGANIZATION HEA [id number] S MEDICAID -O/P [id number] MEDICAID -CLINIC [id number] Problems, Conditions, and Diagnoses Code Display Name Description Problem Type Effective Dates Data Source(s) F43.10 [id number] PTSD (post-traumatic stress disorder) Pro blem 08/30/2020 12:00:00 AM EST eCW1 ([facility]) F33.2 [id number] Severe episode of re current major depressive disorder, without psychotic features Problem 08/30/2020 12:00:00 AM EST eCW1 ([facility]) Surgeries/Procedures Procedure Description Date Indications Data Source(s) Immunization: Flublok Quadrivalent (18 years & older) 0.5mL IM (Influenza) 08/30/2020 12:00:00 AM EST eCW1 ([facility]) Results No Information Social History Code Duration Value Status Description Data Source(s ) Smoking 09/09/2020 12:00:00 AM EST Current Smoker completed Curre nt Smoker eCW1 ([facility]) Smoking 09/09/2020 12:00:00 AM EST Current Smoker completed Curre nt Smoker eCW1 ([facility]) Smoking 09/09/2020 12:00:00 AM EST Current Smoker completed Curre nt Smoker eCW1 ([facility]) Smoking 08/30/2020 12:00:00 AM EST Current Smoker completed Curre nt Smoker eCW1 ([facility]) Smoking 08/30/2020 12:00:00 AM EST Current Smoker completed Curre nt Smoker eCW1 ([facility]) Vital Signs ID Date Data Source UNK Name Value Range Interpretation Code Description Data Source(s) Body weight 173 [lb_av] 173 [lb_av] eCW1 ([facility]) Body height 72 [in_i] 72 [in_i] eCW1 ([facility]) Body mass index (BMI) [Ratio] 23.46 kg/m2 23.46 kg/m2 eCW1 ([facility]) Heart rate 98 /min 98 /min eCW1 ([facility]) Respiratory rate 18 /min 18 /min eCW1 ([facility]) Body temperature 97.8 [degF] 97.8 [degF] eCW1 ( [facility]) Systolic blood pressure 128 mm[Hg] 128 mm[Hg] e CW1 ([facility]) Diastolic blood pressure 60 mm[Hg] 60 mm[Hg] eCW1 ([facility]) Body weight 172.2 [lb_av] 172.2 [lb_av] eCW1 ([facility]) Body height 72 [in_i] 72 [in_i] eCW1 ([facility]) Body mass index (BMI) [Ratio] 23.35 kg/m2 23.35 kg/m2 eCW1 ([facility]) Heart rate 60 /min 60 /min eCW1 ([facility] hospital) Respiratory rate 18 /min 18 /min eCW1 ([facility]) Body temperature 97.0 [degF] 97.0 [degF] eCW1 ( [facility]) Systolic blood pressure 117 mm[Hg] 117 mm[Hg] e CW1 ([facility]) Diastolic blood pressure 75 mm[Hg] 75 mm[Hg] eCW1 ([facility]) Body weight 180.00 [lb_av] 180.00 [lb_av] CLEMENTEN T ([facility] ) Body temperature 98.0 [degF] 98.0 [degF] MEDENT ([facility]) Body height 71 [in_i] 71 [in_i] MEDALFONSO ([facility]) 5'11" Body mass index (BMI) [Ratio] 25.1 kg/m2 25.1 k g/m2 MEDALFONSO ([facility])
[2021-09-11] MEDS ORDERED: PRAZ2CAP PO (16:50)
[2021-09-11] MEDS ORDERED: ARIP1TAB6 PO (16:50)
[2021-09-11] MEDS ORDERED: TRAZ-252 PO (16:50)
[2021-09-11] MEDS ORDERED: CITA40TA4 PO (16:50)
[2021-09-11 17:15] LABS: RSV AMPLIFICATION NEGATIVE (NEGATIVE)
[2021-09-11] MEDS ORDERED: HOME MED LIST COMPLETE! XX SCH (19:10)
[2021-09-11 21:56] VITALS: BP 115/71
[2021-09-12 06:37] VITALS: BP 125/61
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
[2021-09-12] MEDS: CitaloPRAM (CeleXA) 20 MG TAB PO SCH (12:40)
[2021-09-12] MEDS: risperiDONE 1 MG TAB PO SCH ×2 (12:40→21:47)
--- NOTE | 2021-09-12 14:35 | HPEPDOC ---
[facility] Medical History & Physical Date of Admission Sep 12, 2021 Date of Service: Sep 12, 2021 History and Physical CHIEF COMPLAINT: "Thoughts of suicide" HISTORY OF PRESENT ILLNESS: 26-year-old male with a past medical history of hypertension, sinus tachycardia, bilateral hearing loss (reports from childhood), depression, anxiety, and posttraumatic stress disorder was brought to the emergency room department after he had gotten into an argument with his and claimed he would hurt himself. He reported around this time of the year he begins to have a lot of flashbacks about his mother's abandonment which upset him and cause arguments with his . He has also been having recent stressors at home including arguments with his about , and possible eviction from his apartment. He is an active meth user as well as marijuana smoker. He believes this led him to have auditory hallucinations and resulting exacerbation of his anxiety/depression, and having suicidal ideation. At this junction, he denied headaches, chest pain, shortness of breath, abdominal pain, nausea, vomiting, problems with urination or bowel movements. PAST MEDICAL HISTORY: As mentioned above PAST SURGICAL HISTORY: 1. ET tube 2. Tonsillectomy SOCIAL HISTORY: He does not have a job. Lives in an apartment with his . Reports smoking meth as well as marijuana. Occasional use of alcohol. FAMILY HISTORY: Father: Tachycardia, disease sick at the age of 64 Mother: Depression, bipolar disorder ALLERGIES: Please see below. REVIEW OF SYSTEMS: 10 point review of system was negative except for what is noted in the HPI HOME MEDICATIONS: Please see below. PHYSICAL EXAMINATION: VITAL SIGNS: Please see below General: Lying in bed, no acute distress Head/Neck/Throat: Trachea midline, mucous membranes moist Eyes: Sclera anicteric, no erythema or discharge appreciated bilaterally Thorax: Normal respiratory effort on room air, lungs clear to auscultation bilaterally, no wheezes/rales/rhonchi Cardiovascular: Normal rate, regular rhythm, normal S1, S2; no S3, S4, rubs/gallops/murmurs Abdomen: Bowel sounds present, soft/nontender/nondistended Genitourinary: No CVA tenderness, no Mason in place Musculoskeletal: Moving all extremities, no edema Skin: Warm, dry Neurologic: AAOx3, speech fluent and goal-directed, no focal deficits, grossly intact LABORATORY DATA: See below. IMAGING: No imaging to review at this time MICROBIOLOGY: Please see below. ASSESSMENT/PLAN: #Unspecified mood disorder/anxiety/depression -Defer management to psychiatric team. #Sinus tachycardia -Unspecified history of arrhythmia. Continue with metoprolol with holding parameters. #DVT prophylaxis -Encourage ambulation Thank you for involving us in the care of Mr. Clark. Medicine team will sign off at this time please reconsult if needed. Note, history and physical examination was done in the presence of a paper cup handle machine operator. Vital Signs Vital Signs Date Time Temp Pulse Resp B/P (MAP) Pulse Ox O2 Delivery O2 Flow Rate FiO2 09/12/21 08:44 Room Air 09/12/21 06:37 98.1 71 18 125/61 (82) 97 Laboratory Data Labs 24H Laboratory Tests 2 09/11/21 15:52: Coronavirus (COVID-19)(PCR) NEGATIVE, Influenza Type A (RT-PCR) NEGATIVE, Influenza Type B (RT-PCR) NEGATIVE, Respiratory Syncytial Virus (PCR) NEGATIVE Home Medications Scheduled Aripiprazole (Aripiprazole) 5 Mg Tablet, 5 MG PO QHS Citalopram Hydrobromide (Citalopram HBr) 40 Mg Tablet, 40 MG PO DAILY Metoprolol Tartrate (Metoprolol Tartrate) 25 Mg Tablet, 25 MG PO BID Prazosin Hcl (Prazosin HCl) 2 Mg Capsule, 4 MG PO QHS Trazodone HCl (Trazodone HCl) 50 Mg Tablet, 50 MG PO QHS Allergies Coded Allergies: Sulfa (Sulfonamide Antibiotics) (Verified Allergy, Unknown, 08/30/20) cortisone (Verified Allergy, Unknown, 08/30/20) A-FIB/CHADSVASC A-FIB History Current/History of A-Fib/PAF?: No JODI COFFEY M.D. Sep 12, 2021 14:35
[2021-09-12 18:43] VITALS: BP 122/59
[2021-09-12] MEDS: METOPROLOL TART 25 MG TABLET PO SCH (22:04)
[2021-09-13 06:00] VITALS: BP 117/57
[2021-09-13] MEDS ORDERED: CitaloPRAM (CeleXA) 20 MG TAB PO SCH (09:00)
[2021-09-13] MEDS: CitaloPRAM (CeleXA) 20 MG TAB PO SCH (09:21)
[2021-09-13] MEDS: METOPROLOL TART 25 MG TABLET PO SCH ×2 (09:21→21:53)
[2021-09-13] MEDS: risperiDONE 1 MG TAB PO SCH (09:21)
[2021-09-13] MEDS: NICOTINE 21MG/24HR 1 EA TRANSDERMAL TD SCH (12:52)
[2021-09-13] MEDS ORDERED: BENZTROPINE MESYLATE 2MG/2ML VIAL IM STA (14:09)
[2021-09-13] MEDS ORDERED: BENZTROPINE MESYLATE 2MG/2ML VIAL As Ordered ONE (14:11)
[2021-09-13] MEDS ORDERED: BENZTROPINE 1 MG TAB PO SCH (14:15)
[2021-09-13] MEDS ORDERED: BENZTROPINE 1 MG TAB PO PRN (14:30)
--- NOTE | 2021-09-13 15:35 | MHIPNPDOC ---
[facility] Progress Note Progress Note DATE OF SERVICE: 09/13/21 HISTORY: Patient is a 26 -year-old , Unemployed, Domiciled, male, who made a suicidal statement after he and his got into an argument. He was last admitted to this hospital in August of 2020 with similar complaints. He reports that when he has an argument with anyone, his auditory hallucinations are stronger and he becomes suicidal. His stressors are that his is leaving him again (last year she was attempting to leave him and live with her boyfriend) She apparently is trying to do the same, the patient also reports that all three of them will be evicted in 2 weeks. His other stressor that he ruminates about is not having his mother as a supportive person in his life. PER ED REPORT: Got in an argument, has panic attacks and hears voices when he gets into arguments. Stated "Her boyfriend was in the apartment I am trying to get him out there, when I went for a walk she said I was suicidal. " Pt. spouse contacted police as pt. was talking about suicide. Police report upon arriving at residence, pt. was upset, punching parikh and yelling. Pt. stated his live if horrible and that he didn't want to live anymore. Pt. cooperative on transport and upon arrival. Pt was in an argument with due to wanting to leave pt., additionally, pt. is losing his apartment, has no job, and is an active meth user. Pt was brought in by [facility] on 9. after pt.s used her sister's phone to call 911. Per report from [facility], pt. used meth this morning, became angry at and threatened to kill self. Pt and his are in the process of and are about to lose their apartment. Pt minimizes his drug use, stating at one point he uses meth "occasionally" then states 3-4 times per week. Pt expresses S/I with no plan. Pt has been with [facility] on and off for seven years, but states he has had not been compliant in months. Pt cannot CFS. VITAL SIGNS: See below. NEW TEST RESULTS: None CURRENT MEDICATIONS: See below. MENTAL STATUS EXAMINATION: Patient is a -year old male, who is . General Appearance: unkempt, disheveled, hospital scrubs/clothing Build: thin Demeanor: other (mildly fidgety) Eye Contact: average Activity: average Behavior: cooperative Speech: slurred (patient is hearing impaired), normal volume, reg/rate,rhythm,volume, other Mood: depressed, anxious Affect: constricted Thought Process: logical/linear Thought Content (Delusions): none reported, other (reporting auditory hallucinations) Thought Content (Other): coherent Thought Content (Aggressive): none reported Perception (Hallucinations): auditory Perception (Other): none reported Cognition (Impairment of): none reported Cognition(Intelligence Est.): other (below average) Oriented: Awake, Alert, Oriented times three Insight: fair Judgment: Fair Psychosis: Denies DIAGNOSES: Adjustment disorder with mixed disturbances of emotions and conduct Cannabis Use Disorder Tobacco Use Disorder Methamphetamine Use Disorder Methamphetamine Induced Mood Disorder Unspecified Anxiety Disorder PTSD per his report ASSESSMENT: Patient was observed bouncing his knee in the common room. He appeared to be anxious and nervous. When asked about this he denied that he was anxious. He reports continued depression because he is unsure whether he would be welcomed back to his apartment. He states that he is on the lease. He is requesting to be discharged. Denies that he has continued suicidal thoughts or any homicidal thinking. He is participating in unit activities, is visible in the milieu, eating and sleeping well. MANAGEMENT PLAN: Continue all medications and supportive therapies, discontinue Risperdal, patient had EPS symptoms and tongue swelling. Risperdal placed on Allergy List. Discharge tomorrow TIME SPENT: 25 minutes. Vital Signs Vital Signs Date Time Temp Pulse Resp B/P (MAP) Pulse Ox O2 Delivery O2 Flow Rate FiO2 09/13/21 09:21 115 121/83 09/13/21 08:19 Room Air 09/13/21 06:00 98.5 16 96 Current Medications Current Medications Medications (Trade) Dose Ordered Sig/Geovanna Route PRN Reason Start Time Stop Time Status Last Admin Dose Admin Acetaminophen (Tylenol Tab) 650 mg Q6HP PRN PO HEADACHE or MILD DISCOMFORT 09/11/21 14:45 Al Hydrox/Mg Hydrox/Simethicone (Mylanta) 30 ml Q4HP PRN PO HEARTBURN/INDIGESTION 09/11/21 14:45 Benztropine Mesylate (Cogentin) 1 mg BIDP PO 09/13/21 14:15 09/13/21 14:30 DC Benztropine Mesylate (Cogentin) 1 mg BIDP PRN PO eps 09/13/21 14:30 Benztropine Mesylate (Cogentin) 2 mg STAT STAT IM 09/13/21 14:09 09/13/21 14:10 DC 09/13/21 14:17 Citalopram Hydrobromide (CeleXA) 40 mg DAILY PO 09/12/21 09:00 09/13/21 09:21 Citalopram Hydrobromide (CeleXA) 40 mg QAM PO 09/13/21 09:00 09/12/21 12:17 DC Home Med (Home Med List Complete!) ASDIRECTED XX 09/11/21 19:10 09/11/21 19:13 DC Magnesium Hydroxide (Milk Of Magnesia) 30 ml DAILYPRN PRN PO CONSTIPATION 09/11/21 14:45 Metoprolol Tartrate (Lopressor) 25 mg BID PO 09/12/21 21:00 09/13/21 09:21 Nicotine (Nicoderm Cq 21mg) 1 patch DAILY TD 09/13/21 09:00 09/13/21 12:52 Olanzapine (ZyPREXA) 5 mg Q6HP PRN PO ANXIETY/AGITATION 09/11/21 14:45 Risperidone (RisperDAL) 1 mg BID PO 09/12/21 09:00 09/13/21 14:10 DC 09/13/21 09:21 Trazodone HCl (Desyrel) 50 mg QHSP PRN PO INSOMNIA 09/11/21 14:45 Allergies Coded Allergies: risperidone (Verified Allergy, Severe, Tongue Swollen, 09/13/21) Sulfa (Sulfonamide Antibiotics) (Verified Allergy, Unknown, 08/30/20) cortisone (Verified Allergy, Unknown, 08/30/20) PRANEETH MARTINEZ TALENT ASSISTANT Sep 13, 2021 15:35
[2021-09-13 17:48] VITALS: BP 112/69
[2021-09-14 06:47] VITALS: BP 106/61
[2021-09-14] MEDS: CitaloPRAM (CeleXA) 20 MG TAB PO SCH (09:00)
[2021-09-14 09:25] VITALS: BP 110/61
[2021-09-14] MEDS: METOPROLOL TART 25 MG TABLET PO SCH (09:25)
[2021-09-14] MEDS: NICOTINE 21MG/24HR 1 EA TRANSDERMAL TD SCH (09:27)
[2021-09-14] MEDS ORDERED: METO25TA4 PO (10:40)
[2021-09-14] MEDS ORDERED: CITA40TA4 PO (10:40)
[2021-09-14] MEDS ORDERED: NICO21PAT TD (10:40)
--- NOTE | 2021-09-14 14:30 | MHDSPDOC ---
[facility] Discharge Summary Discharge Summary DATE OF ADMISSION: Sep 11, 2021 at 14:41 DATE OF DISCHARGE: September 14, 2021 at 1042 DISCHARGE DIAGNOSES: Adjustment disorder with mixed disturbances of emotions and conduct Cannabis Use Disorder Tobacco Use Disorder Methamphetamine Use Disorder Methamphetamine Induced Mood Disorder Unspecified Anxiety Disorder PTSD per his report REASON FOR ADMISSION: Patient is a 26 -year-old , Unemployed, Domiciled, male, who made a suicidal statement after he and his got into an argument. He was last admitted to this hospital in August of 2020 with similar complaints. He reports that when he has an argument with anyone, his auditory hallucinations are stronger and he becomes suicidal. His stressors are that his is leaving him again (last year she was attempting to leave him and live with her boyfriend) She apparently is trying to do the same, the patient also reports that all three of them will be evicted in 2 weeks. His other stressor that he ruminates about is not having his mother as a supportive person in his life. PER ED REPORT: Got in an argument, has panic attacks and hears voices when he gets into arguments. Stated "Her boyfriend was in the apartment I am trying to get him out there, when I went for a walk she said I was suicidal. " Pt. spouse contacted police as pt. was talking about suicide. Police report upon arriving at residence, pt. was upset, punching parikh and yelling. Pt. stated his live if horrible and that he didn't want to live anymore. Pt. cooperative on transport and upon arrival. Pt was in an argument with due to wanting to leave pt., additionally, pt. is losing his apartment, has no job, and is an active meth user. Pt was brought in by [facility] on after pt.s used her sister's phone to call 911. Per report from [facility], pt. used meth this morning, became angry at and threatened to kill self. Pt and his are in the process of and are about to lose their apartment. Pt minimizes his drug use, stating at one point he uses meth "occasionally" then states 3-4 times per week. Pt expresses S/I with no plan. Pt has been with [facility] on and off for seven years, but states he has had not been compliant in months. Pt cannot CFS. VITAL SIGNS: See below. CONSULTANTS INVOLVED: See Medical H + P by Hospitalist TREATMENT AND PROGRESS ON THE UNIT: Patient was admitted to the [facility] on a 9.39 legal status was afforded the following treatment modalities: 1) Individual Therapy 2) Group Therapy 3) Medication Management 4) Milieu Therapy 5) Safe Environment HOSPITAL COURSE: Patient was admitted to [facility] on a 9.39 legal status. Patient was restarted on his home medications, patient refused Abilify. Risperdal was ordered for his auditory hallucinations, patient had angioedema yesterday, Cogentin 2 mg IM ordered and Risperdal was discontinued and added to his allergy list. Pt found medications beneficial and tolerated them well. Mood, anxiety, and intrusive thoughts improved with treatment. Pt attended groups daily during stay. Pts symptoms improved with treatment. On day of discharge pt. denied depression, anxiety, insomnia, SI/HI, hallucinations, delusions. Pt was discharged home with follow-up at [facility] . Pt felt safe for discharge. DISCHARGE ASSESSMENT: In today's interview, patient is alert and oriented, pt.s dress is appropriate. Hygiene and grooming is fair. Smiles on approach and is pleasant and engaged in the interview. Denies depression and anxiety. Denies suicidal and homicidal ideation, planning or intent. Denies and is not observed with aj, psychotic symptoms of delusions, bizarre thinking, obsessions, paranoia, ruminations illogical thoughts, flight of ideas or having poor insight and judgement. Reinforced with patient need to abstain from alcohol and drugs. At discharge patient has normal mentation, declines further hospitalization on a voluntary status and meets criteria for discharge today. Discussed indications of medications, potential benefits and risks, alternatives (including no t reatment) and questions were encouraged and answered. Patient encouraged to return to hospital if symptoms worsen or change and encouraged to call unit if he/she/they needs to speak to provider for questions regarding medications or care. Patient is returning home, does not know if his will still be there as she has been living with her boyfriend. Patient is currently listed on the lease. MENTAL STATUS EXAMINATION ON DISCHARGE: Patient is a 26 -year-old , Unemployed, Domiciled, male, who made a suicidal statement after he and his got into an argument. Speech: Is fluid, conversant, normal rate, tone and volume Language skills are intact Thought processes including: linear and goal oriented Thought content: denies depression and anxiety. Denies suicidal/homicidal ideation, planning or intent. Abstract reasoning, and computation: fair Description of associations: denies, none observed Description of abnormal or psychotic thoughts: denies, none observed. Judgment: fair Insight: fair Orientation: alert and oriented to person, place, time and situation Recent and remote memory: intact Attention span and concentration: good Language: expansive Fund of knowledge: average Mood: Euthymic Mood Affect: reactive Suicide Risk Assessment: 1) Does the patient wish to be ? No 2) Since your admission, have you had any actual thought of killing yourself? No 3) Since your admission, have you been thinking about how you might do this? No 4) Since your admission, have you had these thoughts and had some intention of acting on them? No 5) Since your admission, have you started to work out or worked out the details of how to kill yourself? No 5A) Do you intent to carry out this plan? No and NA 6) Have you ever done anything, started anything, or prepared to do anything with any intent to ? No 6A) How long since your admission did you do any of these? NA MEDICATIONS ON DISCHARGE: See Medication Reconciliation PLAN/FOLLOWUP ARRANGEMENTS: [facility] The amount of time spent in the coordination of care for this patient was approximately 25 minutes. ETOH/Disorder Med Rx ETOH/DRUG DISORDER RX: Offrd @ d/c & pt refused Vital Signs/I&Os Vital Signs Date Time Temp Pulse Resp B/P (MAP) Pulse Ox O2 Delivery O2 Flow Rate FiO2 09/14/21 09:25 68 110/61 09/14/21 06:47 99.5 16 96 Room Air Medications Scheduled Citalopram Hydrobromide (Citalopram HBr) 40 Mg Tablet, 40 MG PO DAILY for depression for 7 Days, #7 Metoprolol Tartrate (Metoprolol Tartrate) 25 Mg Tablet, 25 MG PO BID for blood pressure for 7 Days, #14 Nicotine (Nicotine Patch) 21 Mg Patch.td24, 1 PATCH TD DAILY for nicotine withdrawal, #7 Allergies Coded Allergies: risperidone (Verified Allergy, Severe, Tongue Swollen, 09/13/21) Sulfa (Sulfonamide Antibiotics) (Verified Allergy, Unknown, 08/30/20) cortisone (Verified Allergy, Unknown, 08/30/20) PRANEETH MARTINEZ NP Sep 14, 2021 10:44
== END 2021-09-14 14:45 | disposition home or self-care (01) | DRG 755 ==
LOC: M ED 09:06 → M ED INP 14:41 → M PSY 21:16
PROVIDERS: ADMIT Psychiatry & Neurology Psychiatry; ATTEND Psychiatry & Neurology Psychiatry
DX: F43.25 Adjustment disorder with mixed disturbance of emotions and conduct (principal); F12.10 Cannabis abuse, uncomplicated; F15.14 Other stimulant abuse with stimulant-induced mood disorder; F41.9 Anxiety disorder, unspecified; F43.10 Post-traumatic stress disorder, unspecified; Z63.5 Disruption of family by separation and divorce; Z20.822 Contact with and (suspected) exposure to COVID-19; Z79.899 Other long term (current) drug therapy; Z88.2 Allergy status to sulfonamides; Z88.8 Allergy status to other drugs, medicaments and biological substances; Z81.8 Family history of other mental and behavioral disorders; Z62.810 Personal history of physical and sexual abuse in childhood; Z62.811 Personal history of psychological abuse in childhood; R00.0 Tachycardia, unspecified; T78.3XXA Angioneurotic edema, initial encounter; T43.505A Adverse effect of unspecified antipsychotics and neuroleptics, initial encounter

== ENCOUNTER 2022-02-14 17:33 | Emergency (ER) | payer MEDICAID, OTHER ==
[~2022-02-14] VITALS: Ht 182.9 cm; Wt 81.8 kg
[~2022-02-14 17:33] MED LIST changes: +ARIP1TAB6 PO; +CITA40TA7 PO; +TRAZ-252 PO; -guanFACINE 1 MG TAB PO ONE
[2022-02-14 19:01] LABS: HEMOGLOBIN 15.8 g/dl (13.5-17.5); MEAN CORPUSCULAR HEMOGLOBIN 28.6 pg (27.0-33.0); MEAN CORPUSCULAR HGB CONC 32.9 g/dl (32.0-36.5); MEAN CORPUSCULAR VOLUME 86.8 fl (80.0-96.0); PLATELET COUNT, AUTOMATED 474 10^3/uL (150-450); RED BLOOD COUNT 5.53 10^6/uL (4.30-6.10); WHITE BLOOD COUNT 9.9 10^3/uL (4.0-10.0)
[2022-02-14 19:44] LABS: ACETAMINOPHEN LEVEL < 2.0 UG/ML (10.0-30.0); ALBUMIN 4.4 GM/DL (3.2-5.2); ALT/SGPT 33 U/L (12-78); AMPHETAMINES LEVEL URINE POSITIVE (NEGATIVE); BARBITURATES URINE NEGATIVE (NEGATIVE); BENZODIAZEPINES URINE NEGATIVE (NEGATIVE); BILIRUBIN,DIRECT < 0.1 MG/DL (0.0-0.2); BILIRUBIN,TOTAL 0.2 MG/DL (0.2-1.0); BLOOD UREA NITROGEN 11 MG/DL (7-18); CALCIUM LEVEL 9.7 MG/DL (8.5-10.1); CANNABINOIDS URINE POSITIVE (NEGATIVE); CARBON DIOXIDE LEVEL 32 MEQ/L (21-32); CHLORIDE LEVEL 108 MEQ/L (98-107); COCAINE METABOLITE URINE NEGATIVE (NEGATIVE); CREATININE FOR GFR 0.92 MG/DL (0.70-1.30); ETHYL ALCOHOL (ETHANOL) < 0.003 % (0.000-0.010); GLOMERULAR FILTRATION RATE > 60.0 (>60); GLUCOSE, FASTING 90 MG/DL (70-100); METHADONE URINE NEGATIVE (NEGATIVE); OPIATES URINE NEGATIVE (NEGATIVE); PHENCYCLIDINE URINE NEGATIVE (NEGATIVE); POTASSIUM SERUM 5.1 MEQ/L (3.5-5.1); SALICYLATE LEVEL 3.6 MG/DL (5.0-30.0); SODIUM LEVEL 140 MEQ/L (136-145); TOTAL PROTEIN 7.7 GM/DL (6.4-8.2)
[2022-02-14 19:55] VITALS: BP 134/67
[2022-02-14 19:56] LABS: RSV AMPLIFICATION NEGATIVE (NEGATIVE)
== END 2022-02-14 20:57 | disposition home or self-care (01) ==
LOC: M ED 17:33
DX: F15.10 Other stimulant abuse, uncomplicated (principal); I10 Essential (primary) hypertension; H91.93 Unspecified hearing loss, bilateral; F43.10 Post-traumatic stress disorder, unspecified; R44.0 Auditory hallucinations; Z81.8 Family history of other mental and behavioral disorders; Z79.899 Other long term (current) drug therapy; Z88.2 Allergy status to sulfonamides; Z88.8 Allergy status to other drugs, medicaments and biological substances

== ENCOUNTER 2024-05-12 11:09 | Emergency (ER) | payer SELFPAY, MEDICAID ==
[~2024-05-12] VITALS: Ht 182.9 cm; Wt 76.7 kg
[~2024-05-12 11:09] MED LIST changes: -LABE100T4 PO; +LABE100T6 PO
[2024-05-12] MEDS: PERCOCET 5MG/325MG TAB PO ONE (14:52)
[2024-05-12] MEDS: DERMABOND TOPICAL SKIN ADHESIVE TOP ONE (15:34)
[2024-05-12 15:51] VITALS: BP 116/59; O2SAT 98
[2024-05-12 15:52] VITALS: TEMP 96.5
== END 2024-05-12 15:54 | disposition home or self-care (01) ==
LOC: M ED 11:09
DX: S01.312A Laceration without foreign body of left ear, initial encounter (principal); Y04.8XXA Assault by other bodily force, initial encounter; Y92.9 Unspecified place or not applicable; Y93.9 Activity, unspecified; Y99.9 Unspecified external cause status; F41.9 Anxiety disorder, unspecified; F32.A Depression, unspecified; F17.210 Nicotine dependence, cigarettes, uncomplicated; Z88.2 Allergy status to sulfonamides; Z88.8 Allergy status to other drugs, medicaments and biological substances; Z79.899 Other long term (current) drug therapy